=== PATIENT | male | born 1960 | race Caucasian/White ===

== ENCOUNTER 2021-01-29 16:07 | Observation (INO) | payer OTHER, MEDICAID, SELFPAY ==
[2021-01-29] VITALS (21 sets, daily range): BP systolic 91–141; BP diastolic 55–97; PULSE 90–121; RESP 14–22; TEMP 36.7; O2SAT 93–100; BMI 30.2
[2021-01-29 16:52] LABS: Add Manual Diff / Slide Review NO; Basophils Absolute Auto 0 /uL (0-100); Basophils Percent Auto 1.3 % (0-2); Eosinophils Absolute Auto 100 /uL (0-450); Eosinophils Percent Auto 2.5 % (2-4); Hematocrit 41.8 % (41-53); Hemoglobin 14.2 g/dL (13.5-17.5); Lymphocytes Absolute Auto 1100 /uL (1100-4500); Lymphocytes Percent Auto 31.1 % (25-40); Mean Corpuscular Hemoglobin 33.7 PG (26-34); Mean Corpuscular Volume 99.1 fL (80-100); Monocytes Absolute Auto 300 /uL (0-900); Monocytes Percent Auto 7.6 % (3-14); Neutrophils Absolute Auto 2100 /uL (1500-7000); Neutrophils Percent Auto 57.5 % (50-75); Platelet Count 189 X10^3/uL (150-400); Red Blood Cell Count 4.22 X10^6/uL (4.5-5.9); Red Cell Distribution Width 17.7 % (11.6-14.8); White Blood Cell Count 3.7 X10^3/uL (4.5-11.0)
[2021-01-29 16:53] LABS: Prothrombin Time 11.5 SECONDS (10.1-12.7)
[2021-01-29 16:59] LABS: Alanine Aminotransferase 105 IU/L (<50); Albumin 4.4 g/dL (3.5-5.0); Albumin Globulin Ratio 1.8 (1.0-2.8); Alkaline Phosphatase 66 U/L (38-126); Aspartate Aminotransferase 188 IU/L (17-59); BUN Creatinine Ratio 5.3 (6-22); Bilirubin Total 0.9 mg/dL (0.2-1.3); Blood Urea Nitrogen 5 mg/dL (9-20); Calcium 9.4 mg/dL (8.4-10.2); Carbon Dioxide 27 mmol/L (22-32); Chloride 94 mmol/L (98-107); Estimated Glomerular Filt Rate > 60.0 mL/min (>60); Ethanol (ETOH) 116 mg/dL; Globulin 2.5 g/dL (1.7-4.1); Glucose 213 mg/dL (70-100); HEMOLYSIS < 15 (0-50); Potassium 3.9 mmol/L (3.4-5.1); Sodium 134 mmol/L (137-145); Total Protein 6.9 g/dL (6.3-8.2)
[2021-01-29] MEDS: LORazepam 2 MG/ML INJ IV ×2 (17:01→18:40)
[2021-01-29] MEDS: PHENobarbital 65 MG/ML VIAL 260 MG IV (17:03)
[2021-01-29] MEDS: SODIUM CHLORIDE 0.9% 1,000 ML 1000 ML IV (17:05)
--- NOTE | 2021-01-29 17:15 | ED_ITS ---
HPI - Recheck/Abnormal Lab/Rx General Chief Complaint: Recheck/Abnormal Lab/Rx Stated Complaint: ALCOHOL DETOX PRETTY BAD Time Seen by Provider: 01/29/21 16:46 Source: patient Mode of arrival: Ambulatory Limitations: no limitations History of Present Illness HPI narrative: Patient is a 60-year-old male. Known alcoholic. Last drink was this morning. Arrives to the emergency department seeking help for his alcohol withdrawal. Patient has had withdrawals in the past. Has hallucinated in the past. Is having some hallucinations upon arrival. Does have a history of squamous cell carcinoma. Is not currently undergoing any treatment. Is on warfarin for multiple DVTs. States that he has had quite a bit of nausea and vomiting recently so is unsure as to how much of any of his medications that he has been receiving. Related Data Home Medications Medication Instructions Recorded Confirmed alprazolam 0.5 mg tablet 0.5 mg PO TIDP PRN #0 11/14/16 lorazepam 0.5 mg tablet 0.5 mg PO Q6H #0 11/14/16 metoclopramide HCl 10 mg tablet 10 mg PO Q6HP PRN #0 11/14/16 ondansetron HCl 4 mg tablet 4 mg PO Q6H #0 11/14/16 warfarin 7.5 mg tablet (Coumadin) 3.75 mg PO EVERY OTHER DAY #0 11/14/16 warfarin 7.5 mg tablet (Coumadin) 7.5 mg PO EVERY OTHER DAY #0 11/14/16 Previous Rx's Medication Instructions Recorded simvastatin 20 mg tablet 20 mg PO HS #90 tab 06/06/16 fluconazole 10 mg/mL oral 10 ml PO QDAY #120 ml 01/01/17 suspension nitrofurantoin 100 mg PO BID #10 cap 06/13/17 monohydrate/macrocrystals 100 mg capsule (Macrobid) phenazopyridine 200 mg tablet 200 mg PO TID PRN #3 tab 06/13/17 (Pyridium) Allergies Allergy/AdvReac Type Severity Reaction Status Date / Time No Known Drug Allergies Allergy Verified 01/29/21 16:49 Review of Systems Constitutional Constitutional: Denies fever(s) and Reports headache(s) Eyes Eyes: Denies change in vision ENT Ears, Nose, Mouth, and Throat: Reports headache(s) Cardiovascular Cardiovascular: Reports as per HPI and Reports system reviewed and no additional complaints, except as documented Respiratory Respiratory: Reports as per HPI and Reports system reviewed and no additional complaints, except as documented Gastrointestinal Gastrointestinal: Reports as per HPI and Reports system reviewed and no additional complaints, except as documented Genitourinary Genitourinary: Reports system reviewed and no additional complaints, except as documented and Reports as per HPI Neurologic Neurologic: Reports system reviewed and no additional complaints, except as documented, Reports as per HPI and Reports headache(s) Psychiatric Psychiatric: Reports system reviewed and no additional complaints, except as documented and Reports as per HPI Hematologic/Lymphatic On Anticoagulants: Yes Allergic/Immunologic Allergic/Immunologic: Reports system reviewed and no additional complaints, except as documented and Reports as per HPI Patient History Medical History Alcohol withdrawal Dysphagia History of deep venous thrombosis (06/28/15) Onychomycosis (12/02/14) Squamous cell carcinoma of oral cavity Urinary tract infection alcohol intake frequency: 3 or more drinks per day Substance Use Type: does not use Exam Initial Vital Signs Initial Vital Signs: Vital Signs Temperature 98.0 F 01/29/21 16:18 Pulse Rate 121 H 01/29/21 16:18 Respiratory Rate 22 01/29/21 16:18 Blood Pressure 141/97 H 01/29/21 16:18 Pulse Oximetry 99 01/29/21 16:18 Const General: cooperative, comfortable and well developed Limitations: mental status not altered HENMD Head: normal to inspection and normocephalic Eyes General: appearance normal, both eyes and all related structures Resp Effort & Inspection: normal respiratory effort Auscultation: clear to auscultation bilaterally Cardio Rate: regular rate Rhythm: regular rhythm GI Inspection: normal to inspection and non-distended Palpation: soft and No tender Back/Spine/Pelvis Back: normal to inspection Skin Other: Multiple bruises in various stages of healing on his abdomen and chest and left arm Neuro General: patient alert, patient awake, patient oriented x3 and moves all extremities Extrem General: normal to inspection and capillary refill normal Psych Appearance: grossly normal and well kempt Course Orders Ordered: ED Orders 01/29/21 16:20 Complete Blood Count AUTO DIFF Stat Comprehensive Metabolic Panel Stat Ethanol (ETOH) Stat Prothrombin Time INR Stat 01/29/21 17:51 COVID19 -Nasal swab/Pre-Proc Stat 01/29/21 18:47 COVID19 - ADMIT (CERTIFIED RESPIRATORY THERAPIST swab/PCR) Stat Discontinued Medications Sodium Chloride (Normal Saline 0.9%) 1,000 mls @ 1,000 mls/hr IV BOLUS ONE Stop: 01/29/21 17:45 Last Infusion: 01/29/21 18:21 Dose: 0 mls/hr Documented by: Admin: 01/29/21 17:05 Dose: 1,000 mls/hr Documented by: LIAM Thiamine HCl 100 mg/ Sodium (Chloride) 101 mls @ 404 mls/hr IV NOW ONE Stop: 01/29/21 16:49 Last Infusion: 01/29/21 18:21 Dose: 0 mls/hr Documented by: Admin: 01/29/21 18:02 Dose: 404 mls/hr Documented by: LIAM Thiamine HCl 100 mg/ Sodium (Chloride) 101 mls @ 404 mls/hr IV NOW ONE Stop: 01/29/21 17:54 Last Admin: 01/29/21 18:14 Dose: Not Given Documented by: LIAM Lorazepam (Lorazepam 2 Mg/Ml Inj) 2 mg IV NOW ONE Stop: 01/29/21 16:48 Last Admin: 01/29/21 17:01 Dose: 2 mg Documented by: LIAM Lorazepam (Lorazepam 2 Mg/Ml Inj) 2 mg IV NOW ONE Stop: 01/29/21 18:34 Last Admin: 01/29/21 18:40 Dose: 2 mg Documented by: LIAM Multivitamins (Multivitamin 1 Tablet) 1 tab PO DAILY ONE Stop: 01/29/21 16:49 Last Admin: 01/29/21 18:03 Dose: 1 tab Documented by: LIAM Phenobarbital (Phenobarbital 65 Mg/Ml Vial) 260 mg IV NOW ONE Stop: 01/29/21 16:48 Last Admin: 01/29/21 17:03 Dose: 260 mg Documented by: LIAM Vital Signs Vital signs: Vital Signs - 8 hr 01/29/21 16:18 01/29/21 16:29 01/29/21 16:30 Temperature 98.0 F Pulse Rate 121 H 109 H 107 H Respiratory Rate 22 Blood Pressure 141/97 H Pulse Oximetry 99 96 96 01/29/21 16:42 01/29/21 17:00 01/29/21 17:30 Temperature Pulse Rate 107 H 103 H 92 H Respiratory Rate 14 17 20 Blood Pressure 124/85 128/73 Pulse Oximetry 97 96 97 01/29/21 17:31 01/29/21 18:00 01/29/21 18:20 Temperature Pulse Rate 92 H 90 95 H Respiratory Rate 18 19 15 Blood Pressure 92/63 106/67 116/77 Pulse Oximetry 98 96 100 MDM - Recheck/Abnormal Lab/Rx Lab Data Attestation: I reviewed the patient's lab results. Result diagrams: 01/29/21 16:20 01/29/21 16:20 Labs: Lab Results 01/29/21 01/29/21 01/29/21 Range/Units 16:20 16:20 16:20 WBC 3.7 L (4.5-11.0) X10^3/uL RBC 4.22 L (4.5-5.9) X10^6/uL Hgb 14.2 (13.5-17.5) g/dL Hct 41.8 (41-53) % MCV 99.1 (80-100) fL MCH 33.7 (26-34) PG MCHC 34.0 (30-36) % RDW 17.7 H (11.6-14.8) % Plt Count 189 (150-400) X10^3/uL Neut % (Auto) 57.5 (50-75) % Lymph % (Auto) 31.1 (25-40) % [place] % (Auto) 7.6 (3-14) % Eos % (Auto) 2.5 (2-4) % Baso % (Auto) 1.3 (0-2) % Neut # (Auto) 2100 (4456-6524) /uL Lymph # (Auto) 1100 (6157-5153) /uL [place] # (Auto) 300 (0-900) /uL Eos # (Auto) 100 (0-450) /uL Baso # (Auto) 0 (0-100) /uL PT 11.5 (10.1-12.7) SECONDS INR 1.0 (0.9-1.3) Sodium 134 L (137-145) mmol/L Potassium 3.9 (3.4-5.1) mmol/L Chloride 94 L (98-107) mmol/L Carbon Dioxide 27 (22-32) mmol/L BUN 5 L (9-20) mg/dL Creatinine 0.95 (0.66-1.25) mg/dL Estimated GFR > 60.0 (>60) mL/min BUN/Creatinine Ratio 5.3 L (6-22) Glucose 213 H (70-100) mg/dL Calcium 9.4 (8.4-10.2) mg/dL Total Bilirubin 0.9 (0.2-1.3) mg/dL AST 188 H (17-59) IU/L ALT 105 H (<50) IU/L Alkaline Phosphatase 66 (38-126) U/L Total Protein 6.9 (6.3-8.2) g/dL Albumin 4.4 (3.5-5.0) g/dL Globulin 2.5 (1.7-4.1) g/dL Albumin/Globulin Ratio 1.8 (1.0-2.8) Ethyl Alcohol 116 H ( - 10) mg/dL SARS-CoV-2 (PCR) (Negative) 01/29/21 Range/Units 17:51 WBC (4.5-11.0) X10^3/uL RBC (4.5-5.9) X10^6/uL Hgb (13.5-17.5) g/dL Hct (41-53) % MCV (80-100) fL MCH (26-34) PG MCHC (30-36) % RDW (11.6-14.8) % Plt Count (150-400) X10^3/uL Neut % (Auto) (50-75) % Lymph % (Auto) (25-40) % [place] % (Auto) (3-14) % Eos % (Auto) (2-4) % Baso % (Auto) (0-2) % Neut # (Auto) (5795-8680) /uL Lymph # (Auto) (9217-1775) /uL [place] # (Auto) (0-900) /uL Eos # (Auto) (0-450) /uL Baso # (Auto) (0-100) /uL PT (10.1-12.7) SECONDS INR (0.9-1.3) Sodium (137-145) mmol/L Potassium (3.4-5.1) mmol/L Chloride (98-107) mmol/L Carbon Dioxide (22-32) mmol/L BUN (9-20) mg/dL Creatinine (0.66-1.25) mg/dL Estimated GFR (>60) mL/min BUN/Creatinine Ratio (6-22) Glucose (70-100) mg/dL Calcium (8.4-10.2) mg/dL Total Bilirubin (0.2-1.3) mg/dL AST (17-59) IU/L ALT (<50) IU/L Alkaline Phosphatase (38-126) U/L Total Protein (6.3-8.2) g/dL Albumin (3.5-5.0) g/dL Globulin (1.7-4.1) g/dL Albumin/Globulin Ratio (1.0-2.8) Ethyl Alcohol ( - 10) mg/dL SARS-CoV-2 (PCR) Negative (Negative) MDM Narrative Medical decision making narrative: Patient is still intoxicated and is having withdrawal symptoms. Was given medications here in the emergency department. This did improve his symptoms somewhat however they continued. I do feel the patient is high risk for deterioration. Plan will be is to admit to the hospital for further treatment of his alcohol withdrawal symptoms. Discussed this with the patient. He expressed understanding agreement. Discharge Plan Departure Patient Disposition: Admitted As Inpatient Clinical Impression: Alcohol withdrawal
--- NOTE | 2021-01-29 17:31 | PC.NURSE ---
is at home taking care of the children. Note made on the chart 'comment' section to call with updates [phone]
[2021-01-29] MEDS: THIAMINE 100 MG in SODIUM CHLORIDE 0.9% 100 ML 404 ML IV (18:02)
[2021-01-29] MEDS: MULTIVITAMIN 1 TABLET 1 TAB PO (18:03)
[2021-01-29 18:09] LABS: COVID19 -Nasal RAPID Negative (Negative)
[2021-01-29 19:45] LABS: COVID19 - ADMIT (NP swab/PCR) Negative (Negative)
[2021-01-29 20:17] LABS: Hemoglobin A1C% w Est Avg Glu 7.8 % (4.0-6.0)
[2021-01-29] MEDS: MAG HYDROX/ALUMINUM/SIMETH SUS 20 ML, LIDOCAINE VISCOUS 2% 15 ML PO (20:24)
[2021-01-29] MEDS: ONDANSETRON 4 MG/2 ML INJ IV (20:25)
[2021-01-29] MEDS: INSULIN LISPRO 100 UNIT/ML 3ML VIAL SUBCUT (20:32)
[2021-01-29 23:47] LABS: Free T4, Direct Thyroxine 0.96 ng/dL (0.78-2.19)
[2021-01-29] MEDS: chlordiazePOXIDE 10 MG CAPSULE 30 MG PO (23:57)
[2021-01-30] VITALS (36 sets, daily range): BP systolic 99–149; BP diastolic 55–100; PULSE 81–114; RESP 11–24; TEMP 35.9–37.2; O2SAT 91–100; BMI 29.2
[2021-01-30] MEDS: SODIUM CHLORIDE 0.9% 1,000 ML 100 ML IV ×2 (00:01→10:48)
--- NOTE | 2021-01-30 00:36 | P.HP_ITS ---
History of Present Illness History of Present Illness Date Patient Seen: 01/29/21 Time Patient Seen: 22:00 Chief complaint: Requesting alcohol detox Narrative: Benedict Crawford is a 60-year-old male with a history of chronic continuous alcohol abuse, squamous cell carcinoma of the tongue, diabetes type 2 with marginal control, multiple thrombi currently anticoagulated on Pradaxa, hyperlipidemia, and hypothyroidism to the emergency department after being turned down at [facility]. He was initially accepted for alcohol rehab but because he was actively withdrawing they referred him to [facility] emergency department and they would not admit him because they were full. He states that his form of withdrawals consists of vomiting and what he calls seizures which sounds to me like vomiting. He has pain in his chest and esophagus he has been coughing up bloody phlegm, intractable vomiting, persistent nausea, states he has short bursts of urination as well as bowel movements. He states that the vomiting is only relieved by drinking alcohol which he seems to do about 2-3 times per day. He endorses having sweats and a choking sensation. He is not interested in inpatient rehab because he owns a business and is concerned that his business which would be shut down if he were absent for any length of time. Patient has a history of squamous cell carcinoma of his tongue and has a history of having tube feedings in the past. Labs done in the ED include WBC of 3.7 RBC 4.22 hemoglobin and hematocrit within normal limits, platelet count 189, sodium 134, chloride 94, BUN 5, glucose 213, hemoglobin A1c of 7.8, AST 188, ALT 105, TSH of 33, free T4 is within normal limits at 0.96, alcohol level was 116, COVID-19 PCR is negative. Patient History Medical History Alcohol withdrawal Dysphagia History of deep venous thrombosis (06/28/15) Onychomycosis (12/02/14) Squamous cell carcinoma of oral cavity Urinary tract infection Surgical History History of gastrostomy tube placement Family & Social History Family History Mother Alzheimer's disease Father Heart disease Polysubstance abuse Brother Polysubstance abuse Other Alcohol abuse Safety & Behavioral: Feels Safe in Current Yes Environment Been Physically Hurt or No Threatened By a Person Suicidal Ideation Description None Suicide Plan Description No Plan Tobacco & Substance use: alcohol intake frequency 1 qt hard liquor per day Substance Use Type denies Meds Home Medications and Allergies Home Medications Medication Instructions Recorded Confirmed Type simvastatin 20 mg tablet 20 mg PO HS #90 tab 06/06/16 Rx alprazolam 0.5 mg tablet 0.5 mg PO TIDP PRN #0 11/14/16 History lorazepam 0.5 mg tablet 0.5 mg PO Q6H #0 11/14/16 History metoclopramide HCl 10 mg tablet 10 mg PO Q6HP PRN #0 11/14/16 History ondansetron HCl 4 mg tablet 4 mg PO Q6H #0 11/14/16 History warfarin 7.5 mg tablet (Coumadin) 3.75 mg PO EVERY OTHER DAY #0 11/14/16 History warfarin 7.5 mg tablet (Coumadin) 7.5 mg PO EVERY OTHER DAY #0 11/14/16 History fluconazole 10 mg/mL oral 10 ml PO QDAY #120 ml 01/01/17 Rx suspension nitrofurantoin 100 mg PO BID #10 cap 06/13/17 Rx monohydrate/macrocrystals 100 mg capsule (Macrobid) phenazopyridine 200 mg tablet 200 mg PO TID PRN #3 tab 06/13/17 Rx (Pyridium) Allergies Allergy/AdvReac Type Severity Reaction Status Date / Time No Known Drug Allergies Allergy Verified 01/29/21 16:49 Review of Systems Review of Systems ROS: Yes All systems reviewed with the patient and are negative except as otherwise documented Exam Vital Signs (past 8 hours): - 01/29/21 16:42 01/29/21 17:00 01/29/21 17:30 Pulse Rate 107 H 103 H 92 H Respiratory Rate 14 17 20 Blood Pressure 124/85 128/73 Pulse Oximetry 97 96 97 01/29/21 17:31 01/29/21 18:00 01/29/21 18:20 Pulse Rate 92 H 90 95 H Respiratory Rate 18 19 15 Blood Pressure 92/63 106/67 116/77 Pulse Oximetry 98 96 100 01/29/21 18:30 01/29/21 19:00 01/29/21 19:30 Pulse Rate 92 H 103 H 100 H Respiratory Rate 19 17 19 Blood Pressure 122/70 129/90 110/79 Pulse Oximetry 98 99 98 01/29/21 20:00 01/29/21 20:30 01/29/21 21:00 Pulse Rate 97 H 101 H 99 H Respiratory Rate 20 17 20 Blood Pressure 122/77 115/79 95/55 L Pulse Oximetry 97 96 93 01/29/21 21:30 01/29/21 21:33 01/29/21 22:00 Pulse Rate 102 H 108 H 111 H Respiratory Rate 20 18 Blood Pressure 125/74 116/86 Pulse Oximetry 95 98 97 01/29/21 22:30 01/29/21 23:00 01/29/21 23:30 Pulse Rate 110 H 105 H 104 H Respiratory Rate 21 19 19 Blood Pressure 122/77 94/59 L 91/55 L Pulse Oximetry 97 96 96 01/30/21 00:00 01/30/21 00:02 Pulse Rate 110 H 110 H Respiratory Rate 16 18 Blood Pressure 127/80 Pulse Oximetry 98 97 Oxygen Delivery Method Room Air Narrative Exam Narrative: Gen: Alert, oriented, disheveled-appearing 60y.o. male, talkative at times HEENT: normocephalic, atraumatic, conjunctiva clear, sclera non-icteric, oral mucosa pink and moist, poor dentition Neck: supple, full ROM, no JVD, trachea is midline Resp: Lungs CTA, non-labored breathing CV: RRR, no murmur or rubs Abd: soft, non-tender, normoactive BTs Skin: no lesions or rashes, dry and intact Neuro: CIWA: 7, Alert and oriented X 4 w/no focal deficits. Speech clear and coherent. Extremities: moves all 4 extremities, is ambulatory, negative Carolyne?s sign Psyche: normal mood and affect. Objective Labs Result Diagrams: 01/29/21 16:20 01/29/21 16:20 Labs: Laboratory Results - last 24 hr 01/29/21 01/29/21 01/29/21 16:20 16:20 16:20 WBC 3.7 L RBC 4.22 L Hgb 14.2 Hct 41.8 MCV 99.1 MCH 33.7 MCHC 34.0 RDW 17.7 H Plt Count 189 Neut % (Auto) 57.5 Lymph % (Auto) 31.1 [place] % (Auto) 7.6 Eos % (Auto) 2.5 Baso % (Auto) 1.3 Neut # (Auto) 2100 Lymph # (Auto) 1100 [place] # (Auto) 300 Eos # (Auto) 100 Baso # (Auto) 0 PT 11.5 INR 1.0 Sodium 134 L Potassium 3.9 Chloride 94 L Carbon Dioxide 27 BUN 5 L Creatinine 0.95 Estimated GFR > 60.0 BUN/Creatinine Ratio 5.3 L Glucose 213 H Hemoglobin A1c Calcium 9.4 Total Bilirubin 0.9 AST 188 H ALT 105 H Alkaline Phosphatase 66 Total Protein 6.9 Albumin 4.4 Globulin 2.5 Albumin/Globulin Ratio 1.8 TSH Free T4 Ethyl Alcohol 116 H SARS-CoV-2 (PCR) 01/29/21 01/29/21 01/29/21 16:20 16:20 16:20 WBC RBC Hgb Hct MCV MCH MCHC RDW Plt Count Neut % (Auto) Lymph % (Auto) [place] % (Auto) Eos % (Auto) Baso % (Auto) Neut # (Auto) Lymph # (Auto) [place] # (Auto) Eos # (Auto) Baso # (Auto) PT INR Sodium Potassium Chloride Carbon Dioxide BUN Creatinine Estimated GFR BUN/Creatinine Ratio Glucose Hemoglobin A1c 7.8 H Calcium Total Bilirubin AST ALT Alkaline Phosphatase Total Protein Albumin Globulin Albumin/Globulin Ratio TSH 33.0 H Free T4 0.96 Ethyl Alcohol SARS-CoV-2 (PCR) 01/29/21 01/29/21 17:51 18:45 WBC RBC Hgb Hct MCV MCH MCHC RDW Plt Count Neut % (Auto) Lymph % (Auto) [place] % (Auto) Eos % (Auto) Baso % (Auto) Neut # (Auto) Lymph # (Auto) [place] # (Auto) Eos # (Auto) Baso # (Auto) PT INR Sodium Potassium Chloride Carbon Dioxide BUN Creatinine Estimated GFR BUN/Creatinine Ratio Glucose Hemoglobin A1c Calcium Total Bilirubin AST ALT Alkaline Phosphatase Total Protein Albumin Globulin Albumin/Globulin Ratio TSH Free T4 Ethyl Alcohol SARS-CoV-2 (PCR) Negative Negative Assessment & Plan Assessment & Plan narrative: Benedict Crawford is a 60-year-old male who will be admitted for acute alcohol withdrawal. 1. Acute alcohol withdrawal, present on admission * He was given 1 dose of phenobarbital in the emergency department * He will have CIWA monitoring as well as seizure precautions * He will receive oral thiamine, folic acid, and multivitamin starting tomorrow * Librium taper of 30 mg p.o. q.6 hours, dropped to 20 mg p.o. q.6 * Ativan per [facility] protocol * Consult to social work assistant for outpatient rehab 2. Reported hemoptysis * Monitor daily CBC, if he develops gross hemoptysis will need to likely transfer to a facility where they can assess him for esophageal varices 3. Intractable vomiting, acute, present on admission * Patient denies use of cannabis products which can contribute to cyclical vomiting * He will receive IV Zofran 4 mg Q 6 as needed for nausea and vomiting 4. Diabetes type 2 uncontrolled with hemoglobin A1c of 7.8, present on admission * He is initiated on Lantus 5 units at bedtime and low-dose correctional scale * Carb controlled diet 5. Hypothyroidism, chronic * His TSH is quite elevated, free T4 is within normal limits * Continue home dose of levothyroxine 150 mcg p.o. daily 6. History of DVT, chronic * Continue home dose of Pradaxa 150 mg p.o. b.i.d. 7. BPH, chronic * Continue tamsulosin 0.4 mg p.o. daily VTE Prophylaxis: Wells risk score 4 [X] Patient is currently anticoagulated on Pradaxa 150 mg p.o. b.i.d. Patient is admitted to the inpatient service due to the severity of disease, risks of further disease progression and this stay is expected to exceed 2 midnights. FEN: IV fluids: NS at 100 ml/hour, diet: carb controlled, labs: CBC, C/BMP, liver enzymes, Mag, PT/INR Consultants None Dispo: patient may be appropriate for inpatient rehab, have requested consult from Code status: Full code as discussed with the patient who identifies his as his surrogate and POA. [X] I have utilized all available immediate resources to obtain, update, or review of the patient's current medications COVID-19 COVID-19 status: Negative Result date/Date tested (Pos, Neg/Pending): 01/29/21 Time Spent With Patient Critical Care time: I spent a total of [] minutes of critical care time on this patient's care today; this time is exclusive of procedural time. Scores Wells' Criteria for PE Clinical signs and symptoms of DVT: No PE is #1 Dx or equally likely: No Heart rate > 100: Yes Immobilization at least 3 days or surg in previous 4 weeks: No History of PE or DVT: Yes Hemoptysis: Yes Malignancy w/Treatment within 6 months or palliative: No Wells' PE Score total: 4.0 Quality VTE Deep Vein Thrombosis/Pulmonary Embolism Present on Admission: No MIPS - Admit I confirm the patient?s Advance Care Plan is present, Code status is documented, Surrogate decision maker is in patient?s record [If Yes, STOP here]: Yes MIPS - DC The patient has current or prior documentation of left ventricular ejection fraction (LVEF) less than 40%, or moderate or severely depressed left ventricular systolic function.: No
--- NOTE | 2021-01-30 02:48 | PC.NURSE ---
gave a half a tuna sandwich some crackers and a glass of water.
[2021-01-30] MEDS: chlordiazePOXIDE 10 MG CAPSULE 30 MG PO ×3 (05:01→21:40)
[2021-01-30] MEDS: ONDANSETRON 4 MG/2 ML INJ IV ×2 (05:01→20:01)
[2021-01-30 05:11] LABS: Alanine Aminotransferase 79 IU/L (<50); Albumin 3.6 g/dL (3.5-5.0); Albumin Globulin Ratio 1.6 (1.0-2.8); Alkaline Phosphatase 47 U/L (38-126); Aspartate Aminotransferase 144 IU/L (17-59); Bilirubin Total 1.4 mg/dL (0.2-1.3); Bilirubin Unconjugated 0.8 mg/dL (0.0-1.1); Globulin 2.3 g/dL (1.7-4.1); HEMOLYSIS < 15 (0-50); Total Protein 5.9 g/dL (6.3-8.2)
[2021-01-30 05:13] LABS: BUN Creatinine Ratio 6.3 (6-22); Blood Urea Nitrogen 6 mg/dL (9-20); Calcium 8.3 mg/dL (8.4-10.2); Carbon Dioxide 31 mmol/L (22-32); Chloride 98 mmol/L (98-107); Estimated Glomerular Filt Rate > 60.0 mL/min (>60); Glucose 193 mg/dL (70-100); HEMOLYSIS < 15 (0-50); Magnesium 1.4 mg/dL (1.6-2.3); Potassium 3.8 mmol/L (3.4-5.1); Sodium 134 mmol/L (137-145)
[2021-01-30 05:19] LABS: Hematocrit 38.2 % (41-53); Hemoglobin 12.9 g/dL (13.5-17.5); Mean Corpuscular HGB Conc 33.8 % (30-36); Mean Corpuscular Hemoglobin 33.7 PG (26-34); Mean Corpuscular Volume 99.7 fL (80-100); Platelet Count 162 X10^3/uL (150-400); Red Blood Cell Count 3.84 X10^6/uL (4.5-5.9); Red Cell Distribution Width 17.8 % (11.6-14.8); White Blood Cell Count 2.8 X10^3/uL (4.5-11.0)
[2021-01-30] MEDS: IBUPROFEN 400 MG TABLET PO (05:20)
[2021-01-30 05:26] LABS: Add Manual Diff / Slide Review YES
[2021-01-30 06:29] LABS: Total Cells Counted 100
[2021-01-30 06:30] LABS: Anisocytosis 2+; Neutrophils Absolute Manual 1960 /uL (3000-5900)
[2021-01-30] MEDS: PANTOPRAZOLE DR 40 MG TABLET PO (07:44)
[2021-01-30] MEDS: INSULIN LISPRO 100 UNIT/ML 3ML VIAL SUBCUT ×4 (07:51→21:50)
[2021-01-30] MEDS: ENOXAPARIN 40 MG/0.4 ML SYRINGE SUBCUT (08:03)
[2021-01-30] MEDS: LORazepam 0.5 MG TABLET PO ×2 (08:03→10:04)
[2021-01-30] MEDS: FOLIC ACID 1 MG TABLET PO (08:04)
[2021-01-30] MEDS: THIAMINE 100 MG TABLET PO (08:04)
[2021-01-30] MEDS: MULTIVITAMIN 1 TABLET 1 TAB PO (08:04)
[2021-01-30] MEDS: LORazepam 2 MG/ML INJ IV ×2 (11:40→15:24)
[2021-01-30] MEDS: MAGNESIUM CHLORIDE 64 MG TABLET 128 MG PO (12:58)
--- NOTE | 2021-01-30 18:28 | PM.PN.1 ---
Subjective Subjective Date Patient Seen: 01/30/21 Interval history: NO SIGNIFICANT ISSUES REPORTED BY NURSING OVERNIGHT PATIENT DENIES ANY INCREASING CONFUSION SOME ANXIETY REPORTED NO CHEST PAIN. NO SHORTNESS OF BREATH Exam Vital Signs (past 8 hours): - 01/30/21 10:30 01/30/21 10:56 01/30/21 12:16 Temperature 97.5 F L Pulse Rate 102 H 87 84 Respiratory Rate 19 18 16 Blood Pressure 125/88 113/74 Pulse Oximetry 99 97 01/30/21 14:08 01/30/21 17:12 01/30/21 18:00 Temperature 96.6 F L 97 F L Pulse Rate 95 H 107 H 90 Respiratory Rate 19 16 18 Blood Pressure 114/84 120/84 Pulse Oximetry 98 97 Oxygen Delivery Method Nasal Cannula Oxygen Flow Rate 2 Narrative Exam Narrative: NO ACUTE DISTRESS. PATIENT IS ALERT ORIENTED X3. HEAD ATRAUMATIC NORMOCEPHALIC NECK : SUPPLE WITHOUT ADENOPATHY NO CAROTID BRUITS EYE: EOMI, PERRLA, NORMAL CONJUNCTIVA; NO JAUNDICE CHEST: REGULAR RATE. NO RUBS. PMI IS NON DISPLACED. NO MURMURS; NORMAL S1-S2 PULMONARY: DECREASED BS OVER THE BASES. MILD BIBASILAR CRACKLES NOTED; NO INCREASED DULLNESS TO PERCUSSION ABDOMEN: OBESE BUT SOFT. NONTENDER. NONDISTENDED. BOWEL SOUNDS ARE PRESENT IN ALL 4 QUADRANTS. NO MASS. EXTREMITIES: NO EDEMA.. NO CYANOSIS CLUBBING NOTED. NEURO: CRANIAL NERVES 2-12 GROSSLY INTACT. NO FOCAL NEUROLOGICAL DEFICIT NOTED. MSK: NORMAL RANGE OF MOTION FOR AGE. NO JOINT EFFUSION. SKIN: NORMAL FOR ETHNICITY; NO ECCHYMOSIS. NO LESION. GOOD TURGOR.; NO RASHES : NORMAL EXTERNAL GENITALIA. PSYCH : ANXIOUS. ALERT AWAKE ORIENTED X3 Objective Labs Result Diagrams: 01/30/21 04:50 01/30/21 04:50 Labs: Laboratory Results - last 24 hr 01/29/21 01/29/21 01/29/21 16:20 16:20 16:20 WBC RBC Hgb Hct MCV MCH MCHC RDW Plt Count Neut % (Auto) Lymph % (Auto) [place] % (Auto) Eos % (Auto) Baso % (Auto) Lymph # (Auto) [place] # (Auto) Baso # (Auto) Total Counted Seg Neutrophils % Band Neutrophils % Lymphocytes % (Manual) Atypical Lymphs % Monocytes % (Manual) Eosinophils % (Manual) Neutrophils # (Manual) RBC Morphology Anisocytosis Sodium Potassium Chloride Carbon Dioxide BUN Creatinine Estimated GFR BUN/Creatinine Ratio Glucose Hemoglobin A1c 7.8 H Calcium Magnesium Total Bilirubin Conjugated Bilirubin Unconjugated Bilirubin AST ALT Alkaline Phosphatase Total Protein Albumin Globulin Albumin/Globulin Ratio TSH 33.0 H Free T4 0.96 SARS-CoV-2 (PCR) 01/29/21 01/30/21 01/30/21 18:45 04:50 04:50 WBC 2.8 L RBC 3.84 L Hgb 12.9 L Hct 38.2 L MCV 99.7 MCH 33.7 MCHC 33.8 RDW 17.8 H Plt Count 162 Neut % (Auto) Not Reportable Lymph % (Auto) Not Reportable [place] % (Auto) Not Reportable Eos % (Auto) Not Reportable Baso % (Auto) Not Reportable Lymph # (Auto) Not Reportable [place] # (Auto) Not Reportable Baso # (Auto) Not Reportable Total Counted 100 Seg Neutrophils % 64.0 Band Neutrophils % 6.0 Lymphocytes % (Manual) 10.0 L Atypical Lymphs % 14.0 H Monocytes % (Manual) 4.0 Eosinophils % (Manual) 2.0 Neutrophils # (Manual) 1960 L RBC Morphology See below Anisocytosis 2+ H Sodium 134 L Potassium 3.8 Chloride 98 Carbon Dioxide 31 BUN 6 L Creatinine 0.96 Estimated GFR > 60.0 BUN/Creatinine Ratio 6.3 Glucose 193 H Hemoglobin A1c Calcium 8.3 L Magnesium 1.4 L Total Bilirubin Conjugated Bilirubin Unconjugated Bilirubin AST ALT Alkaline Phosphatase Total Protein Albumin Globulin Albumin/Globulin Ratio TSH Free T4 SARS-CoV-2 (PCR) Negative 01/30/21 04:50 WBC RBC Hgb Hct MCV MCH MCHC RDW Plt Count Neut % (Auto) Lymph % (Auto) [place] % (Auto) Eos % (Auto) Baso % (Auto) Lymph # (Auto) [place] # (Auto) Baso # (Auto) Total Counted Seg Neutrophils % Band Neutrophils % Lymphocytes % (Manual) Atypical Lymphs % Monocytes % (Manual) Eosinophils % (Manual) Neutrophils # (Manual) RBC Morphology Anisocytosis Sodium Potassium Chloride Carbon Dioxide BUN Creatinine Estimated GFR BUN/Creatinine Ratio Glucose Hemoglobin A1c Calcium Magnesium Total Bilirubin 1.4 H Conjugated Bilirubin 0.0 Unconjugated Bilirubin 0.8 AST 144 H ALT 79 H Alkaline Phosphatase 47 Total Protein 5.9 L Albumin 3.6 Globulin 2.3 Albumin/Globulin Ratio 1.6 TSH Free T4 SARS-CoV-2 (PCR) [facility] Medical History Alcohol withdrawal Dysphagia History of deep venous thrombosis (06/28/15) Onychomycosis (12/02/14) Squamous cell carcinoma of oral cavity Urinary tract infection Surgical History History of gastrostomy tube placement Family History Mother Alzheimer's disease Father Heart disease Polysubstance abuse Brother Polysubstance abuse Other Alcohol abuse Social History household members: none Smoking Status: Current some day smoker alcohol intake: current Assessment & Plan Assessment & Plan narrative: PROBLEM LIST ALCOHOL INTOXICATION. ACUTE. ALCOHOL ABUSE. EXTENSIVE COUNSELING GIVEN POSSIBLE ANXIETY AND DEPRESSION.NOS MEDICAL NONCOMPLIANCE. EXTENSIVE COUNSELING GIVEN HYPOTHYROIDISM. PER HISTORY HYPERTENSION PER HISTORY HYPERLIPIDEMIA PER HISTORY ANEMIA. LIKELY OF CHRONIC DISEASE. OTHER TYPES COULD BE WORKED OP PLAN CONTINUE WITH LIBRIUM T.I.D. ATIVAN NEEDED FOR WITHDRAWAL WILL ADD GABAPENTIN WELL ROBAXIN ADD BUSPAR AND ZOLOFT FOR ANXIETY TRAZODONE AT NIGHT DISCONTINUE IV FLUID MONITOR CLOSELY FOR ANY SIGN OF DTS DAILY LABS TO FOLLOW FALL AND ASPIRATION PRECAUTIONS MAINTAIN SEIZURE PRECAUTIONS WELL ADDITIONAL MANAGEMENT INDICATED CLINICALLY Time Spent With Patient Critical Care time: I spent a total of [] minutes of critical care time on this patient's care today; this time is exclusive of procedural time. Quality VTE Deep Vein Thrombosis/Pulmonary Embolism Present on Admission: No
[2021-01-30] MEDS: GABAPENTIN 300 MG CAPSULE PO (19:48)
[2021-01-30] MEDS: methocarbamoL 500 MG TABLET PO (19:48)
[2021-01-30] MEDS: BUSPIRONE 5 MG TABLET 10 MG PO (19:48)
[2021-01-30] MEDS: SODIUM CHLORIDE 0.9% FLUSH 10 ML IV (20:01)
[2021-01-30] MEDS: polyethylene glycoL 3350 17 GM POWD.PACK PO (21:39)
[2021-01-30] MEDS: SENNOSIDES 8.6 MG TABLET 17.2 MG PO (21:40)
[2021-01-30] MEDS: ATORVASTATIN 20 MG TABLET 40 MG PO (21:40)
[2021-01-30] MEDS: SERTRALINE 50 MG TABLET PO (21:40)
[2021-01-30] MEDS: TRAZODONE 100 MG TABLET PO (21:42)
[2021-01-30] MEDS: INSULIN GLARGINE 100 UNIT/ML 3ML PEN SUBCUT (21:52)
--- NOTE | 2021-01-30 22:50 | PC.NURSE ---
Addendum entered by Payton Trevino R.N. 01/31/21 03:57: Noted that O2 sats drop down into upper 80's when asleep so placed on O2 at 1L/min per NC. Original Note: Patient is alert and mostly oriented; did not know day of month but did know it was Saturday. Mild tremors noted in bilateral UE when arms extended. Denies anxiety, delusions or hallucinations. Did complain of nausea and was medicated with Zofran; no emesis or dry heaves. CIWA was 2. Breath sounds CTA with RA sat of 93%; is on continuous oximetry. HRR with telemetry reading of SR but is intermittently tachy into low 100's. BT present and is passing flatus. Denied dysuria, frequency or urgency with urination. Is able to move himself in bed. Up in room with SBA and walked around room. Is wearing bilateral calf SCD's. Seizure pads in place. Complained of mid abdominal pain with severity of 6/10 and KENIA Huitron, was informed and did not want to order pain medication at this time. Patient is able to fall asleep despite complaints of pain. Fall risk score is moderate and bed alarm is active.
[2021-01-31] VITALS (10 sets, daily range): BP systolic 96–135; BP diastolic 67–86; PULSE 82–92; RESP 16–20; TEMP 36.2–37.5; O2SAT 95–98
[2021-01-31 00:19] LABS: HBsAg Screen Negative (Negative); Hepatitis A Antibody IgM Negative (Negative); Hepatitis B Core Antibody IgM Negative (Negative); Hepatitis C Antibody <0.1 s/co ratio (0.0-0.9)
[2021-01-31] MEDS: ONDANSETRON 4 MG/2 ML INJ IV ×2 (05:12→11:59)
[2021-01-31] MEDS: SODIUM CHLORIDE 0.9% FLUSH 10 ML IV ×4 (05:13→22:08)
[2021-01-31 05:52] LABS: Add Manual Diff / Slide Review NO; Basophils Absolute Auto 0 /uL (0-100); Basophils Percent Auto 1.1 % (0-2); Eosinophils Absolute Auto 200 /uL (0-450); Eosinophils Percent Auto 6.3 % (2-4); Hematocrit 35.7 % (41-53); Hemoglobin 11.9 g/dL (13.5-17.5); Lymphocytes Absolute Auto 700 /uL (1100-4500); Lymphocytes Percent Auto 28.7 % (25-40); Mean Corpuscular HGB Conc 33.4 % (30-36); Mean Corpuscular Hemoglobin 33.6 PG (26-34); Mean Corpuscular Volume 100.6 fL (80-100); Monocytes Absolute Auto 300 /uL (0-900); Monocytes Percent Auto 10.4 % (3-14); Neutrophils Absolute Auto 1300 /uL (1500-7000); Neutrophils Percent Auto 53.5 % (50-75); Platelet Count 144 X10^3/uL (150-400); Red Blood Cell Count 3.55 X10^6/uL (4.5-5.9); Red Cell Distribution Width 17.6 % (11.6-14.8); White Blood Cell Count 2.4 X10^3/uL (4.5-11.0)
[2021-01-31 05:54] LABS: Alanine Aminotransferase 71 IU/L (<50); Albumin 3.1 g/dL (3.5-5.0); Albumin Globulin Ratio 1.5 (1.0-2.8); Alkaline Phosphatase 45 U/L (38-126); Aspartate Aminotransferase 122 IU/L (17-59); Bilirubin Total 0.9 mg/dL (0.2-1.3); Bilirubin Unconjugated 0.4 mg/dL (0.0-1.1); Globulin 2.1 g/dL (1.7-4.1); HEMOLYSIS < 15 (0-50); Total Protein 5.2 g/dL (6.3-8.2)
[2021-01-31 05:56] LABS: Alanine Aminotransferase 75 IU/L (<50); Albumin 3.3 g/dL (3.5-5.0); Albumin Globulin Ratio 1.5 (1.0-2.8); Alkaline Phosphatase 47 U/L (38-126); Aspartate Aminotransferase 125 IU/L (17-59); BUN Creatinine Ratio 7.9 (6-22); Bilirubin Total 0.9 mg/dL (0.2-1.3); Blood Urea Nitrogen 7 mg/dL (9-20); Calcium 8.6 mg/dL (8.4-10.2); Carbon Dioxide 29 mmol/L (22-32); Chloride 102 mmol/L (98-107); Estimated Glomerular Filt Rate > 60.0 mL/min (>60); Globulin 2.2 g/dL (1.7-4.1); Glucose 173 mg/dL (70-100); HEMOLYSIS < 15 (0-50); Potassium 3.8 mmol/L (3.4-5.1); Sodium 136 mmol/L (137-145); Total Protein 5.5 g/dL (6.3-8.2)
[2021-01-31 06:04] LABS: Magnesium 1.6 mg/dL (1.6-2.3)
[2021-01-31] MEDS: LORazepam 2 MG/ML INJ IV ×2 (06:32→11:29)
[2021-01-31] MEDS: PANTOPRAZOLE DR 40 MG TABLET PO (06:52)
[2021-01-31] MEDS: INSULIN LISPRO 100 UNIT/ML 3ML VIAL SUBCUT ×3 (08:40→17:07)
[2021-01-31] MEDS: GABAPENTIN 300 MG CAPSULE PO ×3 (08:43→22:06)
[2021-01-31] MEDS: THIAMINE 100 MG TABLET PO (08:43)
[2021-01-31] MEDS: MULTIVITAMIN 1 TABLET 1 TAB PO (08:43)
[2021-01-31] MEDS: FOLIC ACID 1 MG TABLET PO (08:43)
[2021-01-31] MEDS: TAMSULOSIN 0.4 MG CAPSULE PO (08:44)
[2021-01-31] MEDS: ENOXAPARIN 40 MG/0.4 ML SYRINGE SUBCUT (08:44)
[2021-01-31] MEDS: METOPROLOL ER 25 MG TABLET PO (08:44)
[2021-01-31] MEDS: polyethylene glycoL 3350 17 GM POWD.PACK PO ×2 (08:45→22:07)
[2021-01-31] MEDS: LEVOTHYROXINE 150 MCG TABLET PO (08:57)
[2021-01-31] MEDS: MULTIVIT,CALC,MINS/IRON/FOLIC 1 TABLET 1 TAB PO (08:57)
[2021-01-31] MEDS: methocarbamoL 500 MG TABLET PO ×3 (08:58→22:06)
[2021-01-31] MEDS: chlordiazePOXIDE 10 MG CAPSULE 30 MG PO (09:48)
[2021-01-31] MEDS: MAGNESIUM CHLORIDE 64 MG TABLET 128 MG PO (11:52)
--- NOTE | 2021-01-31 13:45 | PM.PN.1 ---
Subjective Subjective Date Patient Seen: 01/31/21 Interval history: SPOKE TO PATIENT WITH HIS AT BEDSIDE WE SPOKE EXTENSIVELY IN REGARD TO THE CASE IN OUR MANAGEMENT GOING ONWARD NO INCREASING CONFUSION NO ALCOHOL SUBSTANCE CRAVING WOULD LIKE TO GO HOME AFTER BEING TREATED HERE Exam Vital Signs (past 8 hours): - 01/31/21 06:50 01/31/21 07:55 01/31/21 08:44 Temperature 98.2 F Pulse Rate 92 H 82 88 Respiratory Rate 16 18 Blood Pressure 135/78 106/75 130/86 Pulse Oximetry 97 01/31/21 09:00 01/31/21 11:49 01/31/21 12:00 Temperature 98.8 F Pulse Rate 87 85 Respiratory Rate 16 20 Blood Pressure 112/80 120/80 Pulse Oximetry 96 98 Oxygen Delivery Method Room Air Oxygen Flow Rate 0 Narrative Exam Narrative: NO ACUTE DISTRESS.? PATIENT IS ALERT ORIENTED X3. HEAD ATRAUMATIC NORMOCEPHALIC NECK : SUPPLE WITHOUT ADENOPATHY NO CAROTID BRUITS EYE:? EOMI, PERRLA, NORMAL CONJUNCTIVA; NO JAUNDICE CHEST:? REGULAR RATE.? ? NO RUBS.? PMI IS NON DISPLACED.? NO MURMURS; NORMAL S1-S2 PULMONARY:? DECREASED BS OVER THE BASES.? MILD BIBASILAR CRACKLES NOTED; NO INCREASED DULLNESS TO PERCUSSION ABDOMEN:? OBESE BUT SOFT.? NONTENDER.? NONDISTENDED.? BOWEL SOUNDS ARE PRESENT IN ALL 4 QUADRANTS.? NO MASS. EXTREMITIES: NO EDEMA..? NO CYANOSIS CLUBBING NOTED. NEURO:? CRANIAL NERVES 2-12 GROSSLY INTACT. NO FOCAL NEUROLOGICAL DEFICIT NOTED. MSK:? NORMAL RANGE OF MOTION FOR AGE.? NO JOINT EFFUSION. SKIN:? NORMAL FOR ETHNICITY; NO ECCHYMOSIS.? NO LESION. ? GOOD? TURGOR.; NO RASHES :? NORMAL EXTERNAL GENITALIA. PSYCH : ? ANXIOUS.? ALERT AWAKE ORIENTED X3 Objective Labs Result Diagrams: 01/31/21 05:00 01/31/21 05:00 Labs: Laboratory Results - last 24 hr 01/30/21 01/31/21 01/31/21 04:50 05:00 05:00 WBC 2.4 L RBC 3.55 L Hgb 11.9 L Hct 35.7 L MCV 100.6 H MCH 33.6 MCHC 33.4 RDW 17.6 H Plt Count 144 L Neut % (Auto) 53.5 Lymph % (Auto) 28.7 [place] % (Auto) 10.4 Eos % (Auto) 6.3 H Baso % (Auto) 1.1 Neut # (Auto) 1300 L Lymph # (Auto) 700 L [place] # (Auto) 300 Eos # (Auto) 200 Baso # (Auto) 0 Sodium Cancelled Potassium Cancelled Chloride Cancelled Carbon Dioxide Cancelled BUN Cancelled Creatinine Cancelled Estimated GFR Cancelled BUN/Creatinine Ratio Cancelled Glucose Cancelled Calcium Cancelled Magnesium 1.6 Total Bilirubin Conjugated Bilirubin Unconjugated Bilirubin AST ALT Alkaline Phosphatase Total Protein Albumin Globulin Albumin/Globulin Ratio Hepatitis A IgM Ab Negative Hep Bs Antigen Negative Hep B Core IgM Ab Negative Hepatitis C Antibody <0.1 Hep C Ab Signal/Cutoff Comment 01/31/21 01/31/21 05:00 05:00 WBC RBC Hgb Hct MCV MCH MCHC RDW Plt Count Neut % (Auto) Lymph % (Auto) [place] % (Auto) Eos % (Auto) Baso % (Auto) Neut # (Auto) Lymph # (Auto) [place] # (Auto) Eos # (Auto) Baso # (Auto) Sodium 136 L Potassium 3.8 Chloride 102 Carbon Dioxide 29 BUN 7 L Creatinine 0.89 Estimated GFR > 60.0 BUN/Creatinine Ratio 7.9 Glucose 173 H Calcium 8.6 Magnesium Total Bilirubin 0.9 0.9 Conjugated Bilirubin 0.0 Unconjugated Bilirubin 0.4 AST 122 H 125 H ALT 71 H 75 H Alkaline Phosphatase 45 47 Total Protein 5.2 L 5.5 L Albumin 3.1 L 3.3 L Globulin 2.1 2.2 Albumin/Globulin Ratio 1.5 1.5 Hepatitis A IgM Ab Hep Bs Antigen Hep B Core IgM Ab Hepatitis C Antibody Hep C Ab Signal/Cutoff [facility] Medical History Alcohol withdrawal Dysphagia History of deep venous thrombosis (06/28/15) Onychomycosis (12/02/14) Squamous cell carcinoma of oral cavity Urinary tract infection Surgical History History of gastrostomy tube placement Family History Mother Alzheimer's disease Father Heart disease Polysubstance abuse Brother Polysubstance abuse Other Alcohol abuse Social History household members: none Smoking Status: Current some day smoker alcohol intake: current Assessment & Plan Assessment & Plan narrative: PROBLEM LIST ?ALCOHOL INTOXICATION.? ACUTE. ? ALCOHOL ABUSE.? EXTENSIVE COUNSELING GIVEN ?POSSIBLE ? ANXIETY AND DEPRESSION.NOS ? MEDICAL NONCOMPLIANCE.? EXTENSIVE COUNSELING GIVEN ?HYPOTHYROIDISM.? PER HISTORY ?HYPERTENSION PER HISTORY ?HYPERLIPIDEMIA PER HISTORY ?ANEMIA.? LIKELY OF CHRONIC DISEASE.? OTHER TYPES COULD BE WORKED OP ?PLAN 01/31 PATIENT IS DECLINING INPATIENT REHAB AT THIS TIME HE WOULD LIKE TO GO HOME AFTER HIS DETOX TIME HERE IN THE HOSPITAL I SPOKE TO PATIENT WITH HIS AT BEDSIDE QUESTIONS AND CONCERNS ADDRESSED TO EVERYONE IN THE ROOM SATISFACTION AND UNDERSTANDING WILL START TAPERING LIBRIUM CONTINUE ATIVAN WITHCIWA PROTOCOL PER HOSPITAL WILL CONTINUE WITH GABAPENTIN, ROBAXIN, BUSPAR AND ZOLOFT WHICH WERE ADDED YESTERDAY CONTINUE WITH TRAZODONE WELL AT NIGHT WILL CONSIDER ADDING SEROQUEL IF INDICATED CLINICALLY PATIENT APPEARED TO BE IMPROVED. NO SIGN OF DTS. LABS INDICATED ADDITIONAL MANAGEMENT PER CLINICAL COURSE PLAN TO DISCHARGE EITHER SATURDAY OR TUESDAY 01/30 ?CONTINUE WITH LIBRIUM T.I.D. ?ATIVAN NEEDED FOR WITHDRAWAL ?WILL ADD GABAPENTIN WELL ROBAXIN ?ADD BUSPAR AND ZOLOFT FOR ANXIETY ?TRAZODONE AT NIGHT ?DISCONTINUE IV FLUID ?MONITOR CLOSELY FOR ANY SIGN OF DTS ?DAILY LABS TO FOLLOW ?FALL AND ASPIRATION PRECAUTIONS ?MAINTAIN SEIZURE PRECAUTIONS WELL ?ADDITIONAL MANAGEMENT INDICATED CLINICALLY Time Spent With Patient Critical Care time: I spent a total of [] minutes of critical care time on this patient's care today; this time is exclusive of procedural time. Quality VTE Deep Vein Thrombosis/Pulmonary Embolism Present on Admission: No
--- NOTE | 2021-01-31 15:03 | CM.DANOTE ---
DCP Assessment: patient is a 60 yr old male who was admitted with active ETOH withdrawal. Cm met with patient at the bedside and explained role. Patient was alert and oriented x4 during CM visit. patient states he is independent with all ADLs and drives at his baseline. CM asked about patient possibly transfering to an inpatient detox facility. 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 CM asked if the patient needed any information on out patient rehab programs. Patient stated he has a plan with [facility] to follow-up with them at discharge for services. Patient gave Cm the name of his counselor there - Thor [phone] ext [phone]. Patient plans on following up with them and working an outpatient rehab program. Cm asked who will be home to help him at [place] patient stated he is currently living alone, he stated he and his are currently and she lives in [facility] but not with him. however stated that his will drive him home at discharge. Patient seems very motivated to follow threw on his outpatient rehab and has a red folder in his room with all the different outpatient programs in the area that he has talked to and contact information. Cm asked if the patient needed or wanted any other information about AA or other resources in the area. patient stated no he thinks he has it covered. I: [place] and medicaid P: DC home with patients plan to follow up with out patient rehab options. specifically [facility]- no identified DC planning needs at this time however Cm department will follow to help assist with any new DC planning needs that might arise Cata Lau RN Case mangment. Discharge Planning/Care Management Discharge Assessment Start: 01/31/21 15:00 Freq: Status: Active Protocol: Document 01/31/21 15:00 (Rec: 01/31/21 15:03 [id number]) Discharge Planning Assessment Assigned Property Management Coordinator Cata Lau RN Case Manger DPOA/Assigned Designee Name Mary ( ) Contact Information [phone] Advance Directives? No Advance Directives on File No History Provided By Patient,Medical Record Prior Living Arrangements House Household Members none Comment Patient and his are seperated at this time- but his will assist with DC needs. Type of transporation used prior to Drives own vehicle admit Independent with ADL's Yes Is patient alert and oriented? Yes Caregiver for Another No Barriers to Discharge No Discharge Plan Home Transportation Arrangement Patients willing to transport patient home at DC if needed Referrals Initiated None needed Additional Comment Patietn refusing inpatient detox center-or Inpatient rehab information patient planning on following up with [facility] outpatient [facility]hab at discharge Whiteboard Updated in Patient Room with Yes name and ext. # of Property Management Coordinator Review Status In Process Next Review Type Continued Stay Review
[2021-01-31] MEDS: ATORVASTATIN 20 MG TABLET 40 MG PO (22:06)
[2021-01-31] MEDS: SERTRALINE 50 MG TABLET PO (22:07)
[2021-01-31] MEDS: TRAZODONE 100 MG TABLET PO (22:07)
[2021-01-31] MEDS: chlordiazePOXIDE 10 MG CAPSULE 20 MG PO (22:07)
[2021-01-31] MEDS: SENNOSIDES 8.6 MG TABLET 17.2 MG PO (22:07)
[2021-01-31] MEDS: INSULIN GLARGINE 100 UNIT/ML 3ML PEN SUBCUT (22:17)
[2021-02-01] VITALS (8 sets, daily range): BP systolic 102–134; BP diastolic 74–95; PULSE 71–89; RESP 16–20; TEMP 36.1–37; O2SAT 94–96
[2021-02-01 05:18] LABS: Add Manual Diff / Slide Review NO; Basophils Absolute Auto 0 /uL (0-100); Basophils Percent Auto 1.1 % (0-2); Eosinophils Absolute Auto 100 /uL (0-450); Hematocrit 35.4 % (41-53); Hemoglobin 11.8 g/dL (13.5-17.5); Lymphocytes Absolute Auto 700 /uL (1100-4500); Lymphocytes Percent Auto 25.9 % (25-40); Mean Corpuscular HGB Conc 33.3 % (30-36); Monocytes Absolute Auto 300 /uL (0-900); Monocytes Percent Auto 10.8 % (3-14); Neutrophils Absolute Auto 1600 /uL (1500-7000); Neutrophils Percent Auto 57.2 % (50-75); Platelet Count 150 X10^3/uL (150-400); Red Blood Cell Count 3.47 X10^6/uL (4.5-5.9); Red Cell Distribution Width 18.1 % (11.6-14.8); White Blood Cell Count 2.9 X10^3/uL (4.5-11.0)
[2021-02-01 05:29] LABS: Alanine Aminotransferase 82 IU/L (<50); Albumin 3.3 g/dL (3.5-5.0); Albumin Globulin Ratio 1.4 (1.0-2.8); Alkaline Phosphatase 50 U/L (38-126); Aspartate Aminotransferase 129 IU/L (17-59); Bilirubin Total 0.7 mg/dL (0.2-1.3); Blood Urea Nitrogen 11 mg/dL (9-20); Carbon Dioxide 32 mmol/L (22-32); Chloride 102 mmol/L (98-107); Estimated Glomerular Filt Rate > 60.0 mL/min (>60); Globulin 2.3 g/dL (1.7-4.1); Glucose 160 mg/dL (70-100); HEMOLYSIS < 15 (0-50); Potassium 4.1 mmol/L (3.4-5.1); Sodium 137 mmol/L (137-145); Total Protein 5.6 g/dL (6.3-8.2)
[2021-02-01 05:30] LABS: Alanine Aminotransferase 82 IU/L (<50); Albumin 3.3 g/dL (3.5-5.0); Albumin Globulin Ratio 1.4 (1.0-2.8); Alkaline Phosphatase 50 U/L (38-126); Aspartate Aminotransferase 129 IU/L (17-59); Bilirubin Total 0.7 mg/dL (0.2-1.3); Bilirubin Unconjugated 0.3 mg/dL (0.0-1.1); Globulin 2.3 g/dL (1.7-4.1); HEMOLYSIS < 15 (0-50); Total Protein 5.6 g/dL (6.3-8.2)
[2021-02-01 05:31] LABS: Magnesium 1.7 mg/dL (1.6-2.3)
[2021-02-01] MEDS: PANTOPRAZOLE DR 40 MG TABLET PO (08:08)
[2021-02-01] MEDS: METOPROLOL ER 25 MG TABLET PO (08:56)
[2021-02-01] MEDS: ENOXAPARIN 40 MG/0.4 ML SYRINGE SUBCUT (08:56)
[2021-02-01] MEDS: GABAPENTIN 300 MG CAPSULE PO ×3 (08:57→21:49)
[2021-02-01] MEDS: MULTIVITAMIN 1 TABLET 1 TAB PO (08:57)
[2021-02-01] MEDS: THIAMINE 100 MG TABLET PO (08:57)
[2021-02-01] MEDS: TAMSULOSIN 0.4 MG CAPSULE PO (08:57)
[2021-02-01] MEDS: methocarbamoL 500 MG TABLET PO ×3 (08:57→21:56)
[2021-02-01] MEDS: BUSPIRONE 5 MG TABLET 10 MG PO (08:57)
[2021-02-01] MEDS: FOLIC ACID 1 MG TABLET PO (08:57)
[2021-02-01] MEDS: chlordiazePOXIDE 10 MG CAPSULE 20 MG PO ×2 (08:57→21:50)
[2021-02-01] MEDS: SODIUM CHLORIDE 0.9% FLUSH 10 ML IV ×2 (08:59→21:30)
[2021-02-01] MEDS: MULTIVIT,CALC,MINS/IRON/FOLIC 1 TABLET 1 TAB PO (09:02)
[2021-02-01] MEDS: LEVOTHYROXINE 150 MCG TABLET PO (09:02)
--- NOTE | 2021-02-01 10:23 | PC.NURSE ---
Addendum entered by Rupal Perkins R.N. 02/01/21 16:05: Relatively uneventful day. Denies any discomfort. Pt requesting information re: meds., info provided HL intact/patent. Continues to sit in chair. Call light w/in reach, calls appropriately for needs. Continue w/plan of care. Original Note: Pt up to chair, requesting to be able to walk in room Pt steady on feet. Lungs clear, SpO2 954% RA CiWa 3 @ this time due to slight tremors Call light w/in reach, pt calls appropriately for needs.
--- NOTE | 2021-02-01 12:24 | P.PN_ITS ---
Subjective Subjective Date Patient Seen: 02/01/21 Interval history: PATIENT REPORTED SOME INCREASED ANXIETY DUE TO PERSONAL ISSUES DENIES ANY INCREASING CONFUSION NO NAUSEA OR VOMITING NO CHEST PAIN. NO TRANSFER FOR TENSIONS Exam Vital Signs (past 8 hours): - 02/01/21 08:00 02/01/21 08:56 02/01/21 10:19 Temperature 98.3 F Pulse Rate 89 Respiratory Rate 18 Blood Pressure 131/95 H 120/87 122/85 Pulse Oximetry 96 Oxygen Delivery Method Room Air Oxygen Flow Rate 0 Narrative Exam Narrative: NO ACUTE DISTRESS.? PATIENT IS ALERT ORIENTED X3. HEAD ATRAUMATIC NORMOCEPHALIC NECK : SUPPLE WITHOUT ADENOPATHY NO CAROTID BRUITS EYE:? EOMI, PERRLA, NORMAL CONJUNCTIVA; NO JAUNDICE CHEST:? REGULAR RATE.? ? NO RUBS.? PMI IS NON DISPLACED.? NO MURMURS; NORMAL S1- S2 PULMONARY:? DECREASED BS OVER THE BASES.? MILD BIBASILAR CRACKLES NOTED; NO INCREASED DULLNESS TO PERCUSSION ABDOMEN:? OBESE BUT SOFT.? NONTENDER.? NONDISTENDED.? BOWEL SOUNDS ARE PRESENT IN ALL 4 QUADRANTS.? NO MASS. EXTREMITIES: NO EDEMA..? NO CYANOSIS CLUBBING NOTED. NEURO:? CRANIAL NERVES 2-12 GROSSLY INTACT. NO FOCAL NEUROLOGICAL DEFICIT NOTED. MSK:? NORMAL RANGE OF MOTION FOR AGE.? NO JOINT EFFUSION. SKIN:? NORMAL FOR ETHNICITY; NO ECCHYMOSIS.? NO LESION. ? GOOD? TURGOR.; NO RASHES :? NORMAL EXTERNAL GENITALIA. PSYCH : ? ANXIOUS.? ALERT AWAKE ORIENTED X3 Objective Labs Result Diagrams: 02/01/21 04:45 02/01/21 04:45 Labs: Laboratory Results - last 24 hr 02/01/21 02/01/21 02/01/21 04:45 04:45 04:45 WBC 2.9 L RBC 3.47 L Hgb 11.8 L Hct 35.4 L MCV 102.0 H MCH 34.0 MCHC 33.3 RDW 18.1 H Plt Count 150 Neut % (Auto) 57.2 Lymph % (Auto) 25.9 [place] % (Auto) 10.8 Eos % (Auto) 5.0 H Baso % (Auto) 1.1 Neut # (Auto) 1600 Lymph # (Auto) 700 L [place] # (Auto) 300 Eos # (Auto) 100 Baso # (Auto) 0 Sodium Potassium Chloride Carbon Dioxide BUN Creatinine Estimated GFR BUN/Creatinine Ratio Glucose Calcium Magnesium 1.7 Total Bilirubin 0.7 Conjugated Bilirubin 0.0 Unconjugated Bilirubin 0.3 AST 129 H ALT 82 H Alkaline Phosphatase 50 Total Protein 5.6 L Albumin 3.3 L Globulin 2.3 Albumin/Globulin Ratio 1.4 02/01/21 04:45 WBC RBC Hgb Hct MCV MCH MCHC RDW Plt Count Neut % (Auto) Lymph % (Auto) [place] % (Auto) Eos % (Auto) Baso % (Auto) Neut # (Auto) Lymph # (Auto) [place] # (Auto) Eos # (Auto) Baso # (Auto) Sodium 137 Potassium 4.1 Chloride 102 Carbon Dioxide 32 BUN 11 Creatinine 1.10 Estimated GFR > 60.0 BUN/Creatinine Ratio 10.0 Glucose 160 H Calcium 9.0 Magnesium Total Bilirubin 0.7 Conjugated Bilirubin Unconjugated Bilirubin AST 129 H ALT 82 H Alkaline Phosphatase 50 Total Protein 5.6 L Albumin 3.3 L Globulin 2.3 Albumin/Globulin Ratio 1.4 [facility] Medical History Alcohol withdrawal Dysphagia History of deep venous thrombosis (06/28/15) Onychomycosis (12/02/14) Squamous cell carcinoma of oral cavity Urinary tract infection Surgical History History of gastrostomy tube placement Family History Mother Alzheimer's disease Father Heart disease Polysubstance abuse Brother Polysubstance abuse Other Alcohol abuse Social History household members: none Smoking Status: Current some day smoker alcohol intake: current Assessment & Plan Assessment & Plan narrative: PROBLEM LIST ?ALCOHOL INTOXICATION.? ACUTE. ? ALCOHOL ABUSE.? EXTENSIVE COUNSELING GIVEN ?POSSIBLE ? ANXIETY AND DEPRESSION.NOS ? MEDICAL NONCOMPLIANCE.? EXTENSIVE COUNSELING GIVEN ?HYPOTHYROIDISM.? PER HISTORY ?HYPERTENSION PER HISTORY ?HYPERLIPIDEMIA PER HISTORY ?ANEMIA.? LIKELY OF CHRONIC DISEASE.? OTHER TYPES COULD BE WORKED OP ?PLAN 02/01 WILL DISCONTINUE CIWA PROTOCOL CONTINUE ATIVAN NEEDED ANXIETY ONLY CONTINUE TO TAPER LIBRIUM WILL SWITCH TO DAILY DEGREE OF ON THE MORNING CONTINUE WITH GABAPENTIN, ROBAXIN, BUSPAR AND ZOLOFT. WILL ADD A SHORT COURSE OF DEXAMETHASONE WELL LABS AND VITAL SIGNS APPEAR TO BE FAIRLY STABLE. MILD NEUTROPENIA WELL ELEVATED BLOOD SUGAR LEVEL NOTED PATIENT WILL NEED EXTENSIVE PSYCHOTHERAPY POST DISCHARGE FOR SUBSTANCE ABUSE ADDITIONAL MANAGEMENT PER CLINICAL COURSE PLAN TO DISCHARGE EITHER SATURDAY OR SATURDAY OF THIS WEEK 01/31 ?PATIENT IS DECLINING INPATIENT REHAB AT THIS TIME ?HE WOULD LIKE TO GO HOME AFTER HIS DETOX TIME HERE IN THE HOSPITAL ?I SPOKE TO PATIENT WITH HIS AT BEDSIDE ?QUESTIONS AND CONCERNS ADDRESSED TO EVERYONE IN THE ROOM SATISFACTION AND UNDERSTANDING ?WILL START TAPERING LIBRIUM ?CONTINUE ATIVAN WITHCIWA PROTOCOL PER HOSPITAL ?WILL CONTINUE WITH GABAPENTIN, ROBAXIN, BUSPAR AND ZOLOFT WHICH WERE ADDED YESTERDAY ?CONTINUE WITH TRAZODONE WELL AT NIGHT ?WILL CONSIDER ADDING SEROQUEL IF INDICATED CLINICALLY ?PATIENT APPEARED TO BE IMPROVED.? NO SIGN OF DTS. ? LABS INDICATED ?ADDITIONAL MANAGEMENT PER CLINICAL COURSE ?PLAN TO DISCHARGE EITHER SATURDAY OR TUESDAY 01/30 ?CONTINUE WITH LIBRIUM T.I.D. ?ATIVAN NEEDED FOR WITHDRAWAL ?WILL ADD GABAPENTIN WELL ROBAXIN ?ADD BUSPAR AND ZOLOFT FOR ANXIETY ?TRAZODONE AT NIGHT ?DISCONTINUE IV FLUID ?MONITOR CLOSELY FOR ANY SIGN OF DTS ?DAILY LABS TO FOLLOW ?FALL AND ASPIRATION PRECAUTIONS ?MAINTAIN SEIZURE PRECAUTIONS WELL ?ADDITIONAL MANAGEMENT INDICATED CLINICALLY Time Spent With Patient Critical Care time: I spent a total of [] minutes of critical care time on this patient's care today; this time is exclusive of procedural time. Quality VTE Deep Vein Thrombosis/Pulmonary Embolism Present on Admission: No
[2021-02-01] MEDS: LORazepam 2 MG/ML INJ 1 MG IV ×2 (12:40→21:56)
--- NOTE | 2021-02-01 12:42 | CM.DPC ---
DCP Cont: Received a call from patient. He stated, he would really like to speak to someone about his diabetes, before he came here, he was borderline diabetic, and now, they are pricking my fingers about 5 times a day and giving me insulin. Patient indicated, I am supposed to discharge in a couple of days and would like some instructions on how to manage this. Let him know that this media planner / buyer will get in touch with client liaison. Called dietary department and left them a message about patient's concerns, and to see if they can see patient soon. Asked hospitalist if dietary consult can be placed, and he gave verbal permission. Placed orders. P: DCP to continue to follow. Plan is home when stable, will see client liaison here at hospital to discuss diet with his new diagnosis before he goes home. He will be following up with [facility] on an outpatient basis for his alcoholism. Sasha Irizarry RN/Supervisor [employer]
[2021-02-01] MEDS: DEXAMETHASONE 10 MG/ML VIAL IV (12:43)
[2021-02-01] MEDS: INSULIN LISPRO 100 UNIT/ML 3ML VIAL SUBCUT ×2 (12:44→17:32)
[2021-02-01] MEDS: MAGNESIUM CHLORIDE 64 MG TABLET 128 MG PO (14:05)
--- NOTE | 2021-02-01 16:44 | DIET.PN1 ---
Dietary Progress Note Assessment: 60y M seeking medical etoh detox diagnosed c DM2 this hospitalization (A1c 7.8) requesting consult c RD for same. Pt worried about BG checks and insulin use once d/c'd. Pt has been preDM for a while and last PCP visit was prescribed Metformin. Pt drinks vodka throughout the day mixed with diet soda. He feels the heavy etoh use has messed with his stomach leading him to eat only 1/2 meal per day. Pt working on setting up medical appointments as part of his support system for continuing sobriety and would like to work on this for DMSE. Our DM educator will be on site Saturday, Feb 03 and will see patient and give information for setting up OP f/u. Pt pleased c plan. Ht: 175.26 cm Wt: 90.2 kg BMI: 29.2 UBW: Last BM: 01/31/21 (01/31/21 15:54) MNA: 10 Jorge Score: 22 Diet: 01/29/21 Dinner Carbohydrate Consistent Diet Diet Modifications: Carbohydrate level: Large (4 CHO) Nutrition Percent Meal Consumed 75% 02/01/21 13:44 Percent Meal Consumed 100% 01/31/21 17:57 Percent Meal Consumed 100% 01/31/21 13:50 Percent Meal Consumed 100% 01/31/21 09:39 Percent Meal Consumed 75% 01/30/21 17:59 Labs: RBC 3.47 X10^6/uL (4.5-5.9) L 02/01/21 04:45 Hgb 11.8 g/dL (13.5-17.5) L 02/01/21 04:45 Hct 35.4 % (41-53) L 02/01/21 04:45 Creatinine 1.10 mg/dL (0.66-1.25) 02/01/21 04:45 Hemoglobin A1c 7.8 % (4.0-6.0) H 01/29/21 16:20 Electronically Signed by: Hyacinth Avendaño 02/01/21 16:44 [address] [address]
[2021-02-01] MEDS: SENNOSIDES 8.6 MG TABLET 17.2 MG PO (21:49)
[2021-02-01] MEDS: ATORVASTATIN 20 MG TABLET 40 MG PO (21:49)
[2021-02-01] MEDS: SERTRALINE 50 MG TABLET PO (21:50)
[2021-02-01] MEDS: MELATONIN 3 MG TABLET 6 MG PO (21:50)
[2021-02-01] MEDS: TRAZODONE 100 MG TABLET PO (21:56)
--- NOTE | 2021-02-01 22:20 | PC.NURSE ---
02/01 @ 2100 Patient refused Blood Sugar check for HS. Reported to Sheila Sauer RN
[2021-02-02] VITALS (8 sets, daily range): BP systolic 98–123; BP diastolic 55–79; PULSE 64–76; RESP 16–18; TEMP 36.3–36.7; O2SAT 94–99
[2021-02-02 05:50] LABS: Add Manual Diff / Slide Review NO; Basophils Absolute Auto 0 /uL (0-100); Basophils Percent Auto 0.4 % (0-2); Eosinophils Absolute Auto 0 /uL (0-450); Eosinophils Percent Auto 0.2 % (2-4); Hematocrit 36.5 % (41-53); Hemoglobin 12.2 g/dL (13.5-17.5); Lymphocytes Absolute Auto 700 /uL (1100-4500); Lymphocytes Percent Auto 17.1 % (25-40); Mean Corpuscular HGB Conc 33.6 % (30-36); Mean Corpuscular Hemoglobin 34.1 PG (26-34); Mean Corpuscular Volume 101.4 fL (80-100); Monocytes Absolute Auto 300 /uL (0-900); Monocytes Percent Auto 6.6 % (3-14); Neutrophils Absolute Auto 3300 /uL (1500-7000); Neutrophils Percent Auto 75.7 % (50-75); Platelet Count 186 X10^3/uL (150-400); Red Cell Distribution Width 17.9 % (11.6-14.8); White Blood Cell Count 4.3 X10^3/uL (4.5-11.0)
[2021-02-02 06:01] LABS: Alanine Aminotransferase 107 IU/L (<50); Albumin 3.6 g/dL (3.5-5.0); Albumin Globulin Ratio 1.4 (1.0-2.8); Alkaline Phosphatase 47 U/L (38-126); Aspartate Aminotransferase 145 IU/L (17-59); BUN Creatinine Ratio 17.3 (6-22); Bilirubin Total 0.7 mg/dL (0.2-1.3); Blood Urea Nitrogen 17 mg/dL (9-20); Calcium 9.5 mg/dL (8.4-10.2); Carbon Dioxide 30 mmol/L (22-32); Chloride 101 mmol/L (98-107); Estimated Glomerular Filt Rate > 60.0 mL/min (>60); Globulin 2.5 g/dL (1.7-4.1); Glucose 244 mg/dL (70-100); HEMOLYSIS < 15 (0-50); Magnesium 1.7 mg/dL (1.6-2.3); Potassium 4.5 mmol/L (3.4-5.1); Sodium 137 mmol/L (137-145); Total Protein 6.1 g/dL (6.3-8.2)
[2021-02-02] MEDS: PANTOPRAZOLE DR 40 MG TABLET PO (06:19)
[2021-02-02] MEDS: LEVOTHYROXINE 150 MCG TABLET PO (06:19)
[2021-02-02 06:20] LABS: Hemoglobin A1C% w Est Avg Glu 7.9 % (4.0-6.0)
[2021-02-02] MEDS: LORazepam 2 MG/ML INJ 1 MG IV ×4 (06:33→20:29)
[2021-02-02] MEDS: chlordiazePOXIDE 10 MG CAPSULE 20 MG PO (08:46)
[2021-02-02] MEDS: ENOXAPARIN 40 MG/0.4 ML SYRINGE SUBCUT (08:46)
[2021-02-02] MEDS: SODIUM CHLORIDE 0.9% FLUSH 10 ML IV ×2 (08:46→20:35)
[2021-02-02] MEDS: BUSPIRONE 5 MG TABLET 10 MG PO ×2 (08:46→20:37)
[2021-02-02] MEDS: TAMSULOSIN 0.4 MG CAPSULE PO (08:46)
[2021-02-02] MEDS: THIAMINE 100 MG TABLET PO (08:47)
[2021-02-02] MEDS: METOPROLOL ER 25 MG TABLET PO (08:47)
[2021-02-02] MEDS: dexAMETHasone 4 MG TABLET PO ×2 (08:47→14:43)
[2021-02-02] MEDS: GABAPENTIN 300 MG CAPSULE PO ×3 (08:47→20:30)
[2021-02-02] MEDS: FOLIC ACID 1 MG TABLET PO (08:47)
[2021-02-02] MEDS: methocarbamoL 500 MG TABLET PO ×3 (09:11→20:31)
[2021-02-02] MEDS: MULTIVIT,CALC,MINS/IRON/FOLIC 1 TABLET 1 TAB PO (09:11)
--- NOTE | 2021-02-02 15:34 | PM.PN.1 ---
Subjective Subjective Interval history: 60-YEAR-OLD MALE BEING TREATED FOR ALCOHOL ABUSE REQUESTED IN HOUSE DETOX TODAY NO SIGNIFICANT COMPLAINTS NO SIGNIFICANT ISSUES WITH HER BY NURSING OVERNIGHT Exam Vital Signs (past 8 hours): - 02/02/21 07:45 02/02/21 08:44 02/02/21 11:35 Temperature 97.9 F 97.4 F L Pulse Rate 66 66 65 Respiratory Rate 18 18 16 Blood Pressure 108/70 108/70 103/71 Pulse Oximetry 96 96 Oxygen Delivery Method Room Air Oxygen Flow Rate 0 Narrative Exam Narrative: NO ACUTE DISTRESS.? PATIENT IS ALERT ORIENTED X3. HEAD ATRAUMATIC NORMOCEPHALIC NECK : SUPPLE WITHOUT ADENOPATHY NO CAROTID BRUITS EYE:? EOMI, PERRLA, NORMAL CONJUNCTIVA; NO JAUNDICE CHEST:? REGULAR RATE.? ? NO RUBS.? PMI IS NON DISPLACED.? NO MURMURS; NORMAL S1-S2 PULMONARY:? DECREASED BS OVER THE BASES.? MILD BIBASILAR CRACKLES NOTED; NO INCREASED DULLNESS TO PERCUSSION ABDOMEN:? OBESE BUT SOFT.? NONTENDER.? NONDISTENDED.? BOWEL SOUNDS ARE PRESENT IN ALL 4 QUADRANTS.? NO MASS. EXTREMITIES: NO EDEMA..? NO CYANOSIS CLUBBING NOTED. NEURO:? CRANIAL NERVES 2-12 GROSSLY INTACT. NO FOCAL NEUROLOGICAL DEFICIT NOTED. MSK:? NORMAL RANGE OF MOTION FOR AGE.? NO JOINT EFFUSION. SKIN:? NORMAL FOR ETHNICITY; NO ECCHYMOSIS.? NO LESION. ? GOOD? TURGOR.; NO RASHES :? NORMAL EXTERNAL GENITALIA. PSYCH : ? ANXIOUS.? ALERT AWAKE ORIENTED X3 Objective Labs Result Diagrams: 02/02/21 04:55 02/02/21 04:55 Labs: Laboratory Results - last 24 hr 02/02/21 02/02/21 02/02/21 04:55 04:55 04:55 WBC 4.3 L RBC 3.60 L Hgb 12.2 L Hct 36.5 L MCV 101.4 H MCH 34.1 H MCHC 33.6 RDW 17.9 H Plt Count 186 Neut % (Auto) 75.7 H Lymph % (Auto) 17.1 L [place] % (Auto) 6.6 Eos % (Auto) 0.2 L Baso % (Auto) 0.4 Neut # (Auto) 3300 Lymph # (Auto) 700 L [place] # (Auto) 300 Eos # (Auto) 0 Baso # (Auto) 0 Sodium 137 Potassium 4.5 Chloride 101 Carbon Dioxide 30 BUN 17 Creatinine 0.98 Estimated GFR > 60.0 BUN/Creatinine Ratio 17.3 Glucose 244 H Hemoglobin A1c 7.9 H Calcium 9.5 Magnesium 1.7 Total Bilirubin 0.7 AST 145 H ALT 107 H Alkaline Phosphatase 47 Total Protein 6.1 L Albumin 3.6 Globulin 2.5 Albumin/Globulin Ratio 1.4 PFSH Medical History Alcohol withdrawal Dysphagia History of deep venous thrombosis (06/28/15) Onychomycosis (12/02/14) Squamous cell carcinoma of oral cavity Urinary tract infection Surgical History History of gastrostomy tube placement Family History Mother Alzheimer's disease Father Heart disease Polysubstance abuse Brother Polysubstance abuse Other Alcohol abuse Social History household members: none Smoking Status: Current some day smoker alcohol intake: current Assessment & Plan Assessment & Plan narrative: PROBLEM LIST ?ALCOHOL INTOXICATION.? ACUTE. ? ALCOHOL ABUSE.? EXTENSIVE COUNSELING GIVEN ?POSSIBLE ? ANXIETY AND DEPRESSION.NOS ? MEDICAL NONCOMPLIANCE.? EXTENSIVE COUNSELING GIVEN ?HYPOTHYROIDISM.? PER HISTORY ?HYPERTENSION PER HISTORY ?HYPERLIPIDEMIA PER HISTORY ?ANEMIA.? LIKELY OF CHRONIC DISEASE.? OTHER TYPES COULD BE WORKED OP ?PLAN 02/02 WILL TAPER LIBRIUM TO DAILY INCREASE FOR BUSPAR TO TWICE A DAY WILL ALSO CHANGE DEXAMETHASONE TO DAILY CONTINUE GABAPENTIN, ROBAXIN, SERTRALINE PREVIOUSLY ORDERED ADDITIONAL MANAGEMENT PER CLINICAL COURSE LIKELY DISCHARGE IN THE NEXT 24-48 HOURS 02/01 ?WILL DISCONTINUE CIWA PROTOCOL ?CONTINUE ATIVAN NEEDED ANXIETY ONLY ?CONTINUE TO? TAPER LIBRIUM ?WILL SWITCH TO DAILY DEGREE OF ON THE MORNING ? CONTINUE WITH GABAPENTIN, ROBAXIN, BUSPAR AND ZOLOFT. ? WILL ADD A SHORT COURSE OF DEXAMETHASONE WELL ?LABS AND VITAL SIGNS APPEAR TO BE FAIRLY STABLE. ? MILD NEUTROPENIA WELL ELEVATED BLOOD SUGAR LEVEL NOTED ? ?PATIENT WILL NEED EXTENSIVE PSYCHOTHERAPY POST DISCHARGE FOR SUBSTANCE ABUSE ?ADDITIONAL MANAGEMENT PER CLINICAL COURSE ?PLAN TO DISCHARGE EITHER SATURDAY OR SATURDAY OF THIS WEEK 01/31 ?PATIENT IS DECLINING INPATIENT REHAB AT THIS TIME ?HE WOULD LIKE TO GO HOME AFTER HIS DETOX TIME HERE IN THE HOSPITAL ?I SPOKE TO PATIENT WITH HIS AT BEDSIDE ?QUESTIONS AND CONCERNS ADDRESSED TO EVERYONE IN THE ROOM SATISFACTION AND UNDERSTANDING ?WILL START TAPERING LIBRIUM ?CONTINUE ATIVAN WITHCIWA PROTOCOL PER HOSPITAL ?WILL CONTINUE WITH GABAPENTIN, ROBAXIN, BUSPAR AND ZOLOFT WHICH WERE ADDED YESTERDAY ?CONTINUE WITH TRAZODONE WELL AT NIGHT ?WILL CONSIDER ADDING SEROQUEL IF INDICATED CLINICALLY ?PATIENT APPEARED TO BE IMPROVED.? NO SIGN OF DTS. ? LABS INDICATED ?ADDITIONAL MANAGEMENT PER CLINICAL COURSE ?PLAN TO DISCHARGE EITHER SATURDAY OR TUESDAY 01/30 ?CONTINUE WITH LIBRIUM T.I.D. ?ATIVAN NEEDED FOR WITHDRAWAL ?WILL ADD GABAPENTIN WELL ROBAXIN ?ADD BUSPAR AND ZOLOFT FOR ANXIETY ?TRAZODONE AT NIGHT ?DISCONTINUE IV FLUID ?MONITOR CLOSELY FOR ANY SIGN OF DTS ?DAILY LABS TO FOLLOW ?FALL AND ASPIRATION PRECAUTIONS ?MAINTAIN SEIZURE PRECAUTIONS WELL ?ADDITIONAL MANAGEMENT INDICATED CLINICALLY Time Spent With Patient Critical Care time: I spent a total of [] minutes of critical care time on this patient's care today; this time is exclusive of procedural time. Quality VTE Deep Vein Thrombosis/Pulmonary Embolism Present on Admission: No
[2021-02-02] MEDS: TRAZODONE 100 MG TABLET PO (20:30)
[2021-02-02] MEDS: ATORVASTATIN 20 MG TABLET 40 MG PO (20:30)
[2021-02-02] MEDS: SENNOSIDES 8.6 MG TABLET 17.2 MG PO (20:30)
[2021-02-02] MEDS: MELATONIN 3 MG TABLET 6 MG PO (20:30)
[2021-02-02] MEDS: SERTRALINE 50 MG TABLET PO (20:31)
--- NOTE | 2021-02-02 21:14 | PC.NURSE ---
a/o, voices needs, Independant w/ cares and mobility, denies pain/discomfort. reports s/sx of anxiety, requested Ativan IV. CIWA - 4 for tremors and anxiety. patient states he has been drinking alcohol since a young age, and was drinking recently to prevent withdrawal symptoms in the mornings, most specifically nausea and vomiting. patient states he has a plan in place for outpatient treatment, at local facility [facility], and has a meeting w/ them this coming Saturday.
[2021-02-03] VITALS: BP 110/76; PULSE 69; RESP 18; TEMP 36.6; O2SAT 95
[2021-02-03 04:00] VITALS: BP 115/74; PULSE 72; RESP 18; TEMP 36.3; O2SAT 95
[2021-02-03 06:05] LABS: Add Manual Diff / Slide Review NO; Basophils Absolute Auto 0 /uL (0-100); Basophils Percent Auto 0.4 % (0-2); Eosinophils Absolute Auto 0 /uL (0-450); Eosinophils Percent Auto 0.1 % (2-4); Hematocrit 38.7 % (41-53); Hemoglobin 12.8 g/dL (13.5-17.5); Lymphocytes Absolute Auto 800 /uL (1100-4500); Lymphocytes Percent Auto 17.7 % (25-40); Mean Corpuscular Hemoglobin 33.7 PG (26-34); Mean Corpuscular Volume 102.1 fL (80-100); Monocytes Absolute Auto 200 /uL (0-900); Monocytes Percent Auto 5.5 % (3-14); Neutrophils Absolute Auto 3400 /uL (1500-7000); Neutrophils Percent Auto 76.3 % (50-75); Platelet Count 191 X10^3/uL (150-400); Red Cell Distribution Width 17.7 % (11.6-14.8); White Blood Cell Count 4.5 X10^3/uL (4.5-11.0)
[2021-02-03 06:07] LABS: Alanine Aminotransferase 131 IU/L (<50); Albumin 4.2 g/dL (3.5-5.0); Albumin Globulin Ratio 1.7 (1.0-2.8); Alkaline Phosphatase 56 U/L (38-126); Aspartate Aminotransferase 175 IU/L (17-59); BUN Creatinine Ratio 27.4 (6-22); Bilirubin Total 0.7 mg/dL (0.2-1.3); Blood Urea Nitrogen 23 mg/dL (9-20); Calcium 9.5 mg/dL (8.4-10.2); Carbon Dioxide 26 mmol/L (22-32); Chloride 102 mmol/L (98-107); Estimated Glomerular Filt Rate > 60.0 mL/min (>60); Globulin 2.5 g/dL (1.7-4.1); Glucose 241 mg/dL (70-100); HEMOLYSIS 19 (0-50); Magnesium 1.7 mg/dL (1.6-2.3); Potassium 4.3 mmol/L (3.4-5.1); Sodium 139 mmol/L (137-145); Total Protein 6.7 g/dL (6.3-8.2)
[2021-02-03] MEDS: LORazepam 2 MG/ML INJ 1 MG IV ×2 (06:10→11:14)
[2021-02-03] MEDS: LEVOTHYROXINE 150 MCG TABLET PO (06:19)
[2021-02-03] MEDS: PANTOPRAZOLE DR 40 MG TABLET PO (06:19)
[2021-02-03 07:15] VITALS: BP 99/67; PULSE 66; RESP 18; TEMP 36.3; O2SAT 97
--- NOTE | 2021-02-03 07:48 | PM.PN.1 ---
Subjective Subjective Interval history: 60-YEAR-OLD MALE BEING TREATED FOR ALCOHOL INTOXICATION WITHOUT WITHDRAWAL. HE WANTED DETOX BUT REFUSED LONG-TERM REHAB TODAY SPOKE AT LENGTH TO THE PATIENT IN REGARD TO THE CASE HE FEELS LIKE IT IS GETTING BETTER HE DENIES ANY CHANGE IN MENTATION. HE FEELS STRONGER HE DENIES ANY ALCOHOL CRAVING NO CHEST PAIN. NO SHORTNESS OF BREATH HAD SOME MULTIPLE BOWEL MOVEMENTS OVER THE LAST FEW DAYS Exam Vital Signs (past 8 hours): - 02/03/21 00:00 02/03/21 04:00 Temperature 97.8 F 97.4 F L Pulse Rate 69 72 Respiratory Rate 18 18 Blood Pressure 110/76 115/74 Pulse Oximetry 95 95 Oxygen Delivery Method Room Air Oxygen Flow Rate 0 Narrative Exam Narrative: NO ACUTE DISTRESS.? PATIENT IS ALERT ORIENTED X3. APPEARS OLDER THAN STATED AGE HEAD ATRAUMATIC NORMOCEPHALIC NECK : SUPPLE WITHOUT ADENOPATHY NO CAROTID BRUITS EYE:? EOMI, PERRLA, NORMAL CONJUNCTIVA; NO JAUNDICE CHEST:? REGULAR RATE.? ? NO RUBS.? PMI IS NON DISPLACED.? NO MURMURS; NORMAL S1-S2 PULMONARY:? DECREASED BS OVER THE BASES.? MILD BIBASILAR CRACKLES NOTED; NO INCREASED DULLNESS TO PERCUSSION ABDOMEN:? OBESE BUT SOFT.? NONTENDER.? NONDISTENDED.? BOWEL SOUNDS ARE PRESENT IN ALL 4 QUADRANTS.? NO MASS. EXTREMITIES: NO EDEMA..? NO CYANOSIS CLUBBING NOTED. NEURO:? CRANIAL NERVES 2-12 GROSSLY INTACT. NO FOCAL NEUROLOGICAL DEFICIT NOTED. MSK:? NORMAL RANGE OF MOTION FOR AGE.? NO JOINT EFFUSION. SKIN:? NORMAL FOR ETHNICITY; NO ECCHYMOSIS.? NO LESION. ? GOOD? TURGOR.; NO RASHES :? NORMAL EXTERNAL GENITALIA. PSYCH : ? ANXIOUS.? ALERT AWAKE ORIENTED X3 Objective Labs Result Diagrams: 02/03/21 05:40 02/03/21 05:40 Labs: Laboratory Results - last 24 hr 02/03/21 02/03/21 05:40 05:40 WBC 4.5 RBC 3.80 L Hgb 12.8 L Hct 38.7 L MCV 102.1 H MCH 33.7 MCHC 33.0 RDW 17.7 H Plt Count 191 Neut % (Auto) 76.3 H Lymph % (Auto) 17.7 L [place] % (Auto) 5.5 Eos % (Auto) 0.1 L Baso % (Auto) 0.4 Neut # (Auto) 3400 Lymph # (Auto) 800 L [place] # (Auto) 200 Eos # (Auto) 0 Baso # (Auto) 0 Sodium 139 Potassium 4.3 Chloride 102 Carbon Dioxide 26 BUN 23 H Creatinine 0.84 Estimated GFR > 60.0 BUN/Creatinine Ratio 27.4 H Glucose 241 H Calcium 9.5 Magnesium 1.7 Total Bilirubin 0.7 AST 175 H ALT 131 H Alkaline Phosphatase 56 Total Protein 6.7 Albumin 4.2 Globulin 2.5 Albumin/Globulin Ratio 1.7 [facility] Medical History Alcohol withdrawal Dysphagia History of deep venous thrombosis (06/28/15) Onychomycosis (12/02/14) Squamous cell carcinoma of oral cavity Urinary tract infection Surgical History History of gastrostomy tube placement Family History Mother Alzheimer's disease Father Heart disease Polysubstance abuse Brother Polysubstance abuse Other Alcohol abuse Social History household members: none Smoking Status: Current some day smoker alcohol intake: current Assessment & Plan Assessment & Plan narrative: PROBLEM LIST ?ALCOHOL INTOXICATION.? ACUTE. ? ALCOHOL ABUSE.? EXTENSIVE COUNSELING GIVEN ?POSSIBLE ? ANXIETY AND DEPRESSION.NOS ? MEDICAL NONCOMPLIANCE.? EXTENSIVE COUNSELING GIVEN ?HYPOTHYROIDISM.? PER HISTORY ?HYPERTENSION PER HISTORY ?HYPERLIPIDEMIA PER HISTORY ?ANEMIA.? LIKELY OF CHRONIC DISEASE.? OTHER TYPES COULD BE WORKED OP ?PLAN 02/03 PATIENT SHOWING SIGNIFICANT IMPROVEMENT WILL DECREASE LIBRIUM TO 10 MG DAILY WILL ALSO MAKE CHANGES TO HIS DIABETIC MEDICATIONS WILL STOP LANTUS PATIENT STARTED ON GLYBURIDE WILL ALSO ADD METFORMIN PATIENT TO MEET WITH THE ADVERTISING ACCOUNT MANAGER PRIOR TO DISCHARGE WELL CONTINUE WITH DIABETIC DIET IF PATIENT CONTINUED TO IMPROVE, SHOULD BE ABLE TO BE DISCHARGED IN NEXT 24 HOURS ADDITIONAL MANAGEMENT PER CLINICAL COURSE 02/02 ?WILL TAPER LIBRIUM TO DAILY ?INCREASE FOR BUSPAR TO TWICE A DAY ?WILL ALSO CHANGE? DEXAMETHASONE? TO DAILY ?CONTINUE GABAPENTIN, ROBAXIN, SERTRALINE PREVIOUSLY ORDERED ?ADDITIONAL MANAGEMENT PER CLINICAL COURSE ?LIKELY DISCHARGE IN THE NEXT 24-48 HOURS 02/01 ?WILL DISCONTINUE CIWA PROTOCOL ?CONTINUE ATIVAN NEEDED ANXIETY ONLY ?CONTINUE TO? TAPER LIBRIUM ?WILL SWITCH TO DAILY DEGREE OF ON THE MORNING ? CONTINUE WITH GABAPENTIN, ROBAXIN, BUSPAR AND ZOLOFT. ? WILL ADD A SHORT COURSE OF DEXAMETHASONE WELL ?LABS AND VITAL SIGNS APPEAR TO BE FAIRLY STABLE. ? MILD NEUTROPENIA WELL ELEVATED BLOOD SUGAR LEVEL NOTED ? ?PATIENT WILL NEED EXTENSIVE PSYCHOTHERAPY POST DISCHARGE FOR SUBSTANCE ABUSE ?ADDITIONAL MANAGEMENT PER CLINICAL COURSE ?PLAN TO DISCHARGE EITHER SATURDAY OR SATURDAY OF THIS WEEK 01/31 ?PATIENT IS DECLINING INPATIENT REHAB AT THIS TIME ?HE WOULD LIKE TO GO HOME AFTER HIS DETOX TIME HERE IN THE HOSPITAL ?I SPOKE TO PATIENT WITH HIS AT BEDSIDE ?QUESTIONS AND CONCERNS ADDRESSED TO EVERYONE IN THE ROOM SATISFACTION AND UNDERSTANDING ?WILL START TAPERING LIBRIUM ?CONTINUE ATIVAN WITHCIWA PROTOCOL PER HOSPITAL ?WILL CONTINUE WITH GABAPENTIN, ROBAXIN, BUSPAR AND ZOLOFT WHICH WERE ADDED YESTERDAY ?CONTINUE WITH TRAZODONE WELL AT NIGHT ?WILL CONSIDER ADDING SEROQUEL IF INDICATED CLINICALLY ?PATIENT APPEARED TO BE IMPROVED.? NO SIGN OF DTS. ? LABS INDICATED ?ADDITIONAL MANAGEMENT PER CLINICAL COURSE ?PLAN TO DISCHARGE EITHER SATURDAY OR TUESDAY 01/30 ?CONTINUE WITH LIBRIUM T.I.D. ?ATIVAN NEEDED FOR WITHDRAWAL ?WILL ADD GABAPENTIN WELL ROBAXIN ?ADD BUSPAR AND ZOLOFT FOR ANXIETY ?TRAZODONE AT NIGHT ?DISCONTINUE IV FLUID ?MONITOR CLOSELY FOR ANY SIGN OF DTS ?DAILY LABS TO FOLLOW ?FALL AND ASPIRATION PRECAUTIONS ?MAINTAIN SEIZURE PRECAUTIONS WELL ?ADDITIONAL MANAGEMENT INDICATED CLINICALLY Time Spent With Patient Critical Care time: I spent a total of [] minutes of critical care time on this patient's care today; this time is exclusive of procedural time. Quality VTE Deep Vein Thrombosis/Pulmonary Embolism Present on Admission: No
[2021-02-03 09:00] VITALS: BP 99/67
[2021-02-03] MEDS: ENOXAPARIN 40 MG/0.4 ML SYRINGE SUBCUT (09:43)
[2021-02-03] MEDS: chlordiazePOXIDE 10 MG CAPSULE PO (09:44)
[2021-02-03] MEDS: GABAPENTIN 300 MG CAPSULE PO ×2 (09:44→13:51)
[2021-02-03] MEDS: methocarbamoL 500 MG TABLET PO (09:44)
[2021-02-03] MEDS: TAMSULOSIN 0.4 MG CAPSULE PO (09:44)
[2021-02-03] MEDS: FOLIC ACID 1 MG TABLET PO (09:44)
[2021-02-03] MEDS: MULTIVITAMIN 1 TABLET 1 TAB PO (09:44)
[2021-02-03] MEDS: SODIUM CHLORIDE 0.9% FLUSH 10 ML IV (09:45)
[2021-02-03] MEDS: BUSPIRONE 5 MG TABLET 10 MG PO (09:45)
[2021-02-03] MEDS: dexAMETHasone 4 MG TABLET PO (09:45)
[2021-02-03] MEDS: METFORMIN HCL 500 MG TABLET PO (09:48)
[2021-02-03] MEDS: glyBURIDE 2.5 MG TABLET 5 MG PO (10:00)
--- NOTE | 2021-02-03 11:21 | CM.DPC ---
DCP continued: stated during rounds that patient was medically ready for DC today but patient didn't want to DC home today but wanted to go home tomorrow. MD stated patient was very decided that he was staying today and DC home tomorrow- CM met with patient and explained role- CM explained to patient that the doctor placed a DC order in for the patient and that he is being DC today. Patient said he doesn't have a ride set up or his sober blind teacher ready for when he DC until tomorrow. CM explained that MD placed DC orders for today and that CM can set up a taxi to help him get home if he does not have a ride and we can wait until this evening to DC if that helps him get his sober blind teacher to come over today instead of tomorrow. Patient was very angry and stated he will figure it out and he will get his own ride set up. Patient then said the MD told him his treatment would take 6 day and so he would DC on Saturday that is why he set up everything for Saturday. MICAELA spoke with and he stated that he never told the patient he would need to be here 6 days.. MD did say that his taper can take 5 days But DC was always based on patients Withdrawal and his need to be an INPT. MICAELA relayed this to the patient and he stated frustration and a plan for DC from the hospital for later this afternoon. Patient asked that his medications be sent to [facility] here in [place] - CM relayed that information to the MD who stated he will send them. P: DC home today with family transportation. No identified DC planning needs noted at this time but will continue to work with staff and the patient to facilitate a smooth and appropriate DC home. Cata Lau RN Case manger
--- NOTE | 2021-02-03 11:40 | DIET.CONS ---
Dietary Consultation Note Admission Date: 01/29/2021 19:04 Assessment: 60 y/o M treated for ETOH intoxication. Newly dx with T2DM, A1c of 7.8%. Plans to d/c today. Good PO recently. States prior to admit he was eating 1/2 meal per day, vomiting blood at times, and drinking 1 qt vodka per day. States he has been dx c prediabetes in the past and rx'd Metformin, which he was not taking since he was not eating. Has a number of questions, including what to eat, why he was on insulin, and if he should start a keto diet. Has some knowledge about carb counting since ordering off menu at . Plans to see PCP at [facility] after discharge. Ht: 175.26 cm Wt: 90.5 kg BMI: 29.2 Last BM: 01/31/21 (01/31/21 15:54) MNA: 10 Jorge Score: 22 Diet: 01/29/21 Dinner Carbohydrate Consistent Diet Diet Modifications: Carbohydrate level: Large (4 CHO) Nutrition Percent Meal Consumed 75% 02/03/21 10:15 Percent Meal Consumed 75% 02/02/21 17:45 Percent Meal Consumed 75% 02/02/21 14:17 Percent Meal Consumed 25% 02/02/21 09:00 Percent Meal Consumed 75% 02/01/21 13:44 Labs: RBC 3.80 X10^6/uL (4.5-5.9) L 02/03/21 05:40 Hgb 12.8 g/dL (13.5-17.5) L 02/03/21 05:40 Hct 38.7 % (41-53) L 02/03/21 05:40 Creatinine 0.84 mg/dL (0.66-1.25) 02/03/21 05:40 Hemoglobin A1c 7.9 % (4.0-6.0) H 02/02/21 04:55 Nutrition Diagnosis: Altered nutrition lab r/t newly dx T2DM aeb hgA1c of 7.8% Interventions: 1. Sobriety nutrition and liver health 2. DM medications 3. Nutrition reccs for DM and carb counting and plate method 4. DM ed OP resources 5. DM pathophysiology ed 6. HgA1c goal and current lab Monitoring/Evaluations: consult prn Electronically Signed by: Jo-Ann Littlejohn 02/03/21 11:40 Clinical Dietitian, [address] [id number]
[2021-02-03 11:50] VITALS: BP 99/63; PULSE 71; RESP 18; TEMP 36.4; O2SAT 98
--- NOTE | 2021-02-03 12:02 | PM.DS.1 ---
History of Present Illness History of Present Illness Date Patient Seen: 02/03/21 Chief complaint: Requesting alcohol detox Narrative: History of Present Illness History of Present Illness Date Patient Seen:?01/29/21 Time Patient Seen:?22:00 Narrative: Benedict Crawford is a 60-year-old male with a history of chronic continuous alcohol abuse, squamous cell carcinoma of the tongue, diabetes type 2 with marginal control, multiple thrombi currently anticoagulated on Pradaxa, hyperlipidemia, and hypothyroidism to the emergency department after being turned down at [facility].? He was initially accepted for alcohol rehab but because he was actively withdrawing they referred him to [facility] emergency department and they would not admit him because they were full.? He states that his form of withdrawals consists of vomiting and what he calls seizures which sounds to me like vomiting.? He has pain in his chest and esophagus he has been coughing up bloody phlegm, intractable vomiting, persistent nausea, states he has short bursts of urination as well as bowel movements.? He states that the vomiting is only relieved by drinking alcohol which he seems to do about 2-3 times per day.? He endorses having sweats and a choking sensation. He is not interested in inpatient rehab because he owns a business and is concerned that his business which would be shut down if he were absent for any length of time.? Patient has a history of squamous cell carcinoma of his tongue and has a history of having tube feedings in the past. Labs done in the ED include WBC of 3.7 RBC 4.22 hemoglobin and hematocrit within normal limits, platelet count 189, sodium 134, chloride 94, BUN 5, glucose 213, hemoglobin A1c of 7.8, AST 188, ALT 105, TSH of 33, free T4 is within normal limits at 0.96, alcohol level was 116, COVID-19 PCR is negative. Discharge Providers Provider Date of admission: 01/29/21 19:04 Discharge Date: 02/03/21 Consults: 01/29/21 20:00 Consult to Discharge Planning Routine Comment: 01/29/21 23:20 Consult to Discharge Planning Routine Comment: 01/30/21 11:00 Consult to DIRECTOR OF HOME HEALTH SERVICES - Ship [employer]iner Routine Comment: seeking outpatient etoh rehab DIRECTOR OF HOME HEALTH SERVICES Consult: Substance Abuse Assess 02/01/21 12:35 Consult to Dietitian, Adult Routine Comment: Reason For Exam: Dietary consult for Diabetes Discharge provider: Andrea Connolly, Summary Hospital Course Discharge Diagnosis: ?ALCOHOL INTOXICATION.? ACUTE. ? ALCOHOL ABUSE.? EXTENSIVE COUNSELING GIVEN ?POSSIBLE ? ANXIETY AND DEPRESSION.NOS ? MEDICAL NONCOMPLIANCE.? EXTENSIVE COUNSELING GIVEN ?HYPOTHYROIDISM.? PER HISTORY ?HYPERTENSION PER HISTORY ?HYPERLIPIDEMIA PER HISTORY ?ANEMIA.? LIKELY OF CHRONIC DISEASE.? OTHER TYPES COULD BE WORKED OP Hospital Course: PATIENT ADMITTED TO THE HOSPITAL WITH ACUTE ALCOHOL INTOXICATION REQUESTING DETOX HE WAS STARTED ON LIBRIUM WHICH HAS BEEN TAPERED OVER THE LAST FEW DAYS. PATIENT SHOWING SIGN OF ANXIETY WELL. HE WAS STARTED ON BUSPAR WELL ZOLOFT. GABAPENTIN ADDED TO HELP WITH HIS ADDICTION. PATIENT ALSO STARTED ON TRAZODONE AT NIGHT TO HELP HIM SLEEP. THIS WILL ALSO HELP WITH ANXIETY. PATIENT HAS BEEN SET UP FOR OUTPATIENT TREATMENT THERAPY REGARD TO SUBSTANCE ABUSE. HE REFUSE INPATIENT ADMISSION. HE WAS ACCEPTED TO 1 FACILITY BUT DECLINED FOR PERSONAL REASONS. PATIENT APPEARS TO BE AT BASELINE AT THIS TIME. HE WILL BE DISCHARGED TO HOME. ADDITIONAL MANAGEMENT PER OUTPATIENT PROVIDERS Status at Discharge Cognitive/behavioral status at discharge: oriented Functional status at discharge: independent ambulation Overall status at discharge: patient is back to baseline Time Spent with Patient Time spent: Greater than 30 minutes Exam Vital Signs (past 8 hours): - 02/03/21 07:15 02/03/21 09:00 Temperature 97.4 F L Pulse Rate 66 Respiratory Rate 18 Blood Pressure 99/67 99/67 Pulse Oximetry 97 Oxygen Delivery Method Room Air Oxygen Flow Rate 0 Narrative Exam Narrative: NO ACUTE DISTRESS.? PATIENT IS ALERT ORIENTED X3. APPEARS OLDER THAN STATED AGE HEAD ATRAUMATIC NORMOCEPHALIC NECK : SUPPLE WITHOUT ADENOPATHY NO CAROTID BRUITS EYE:? EOMI, PERRLA, NORMAL CONJUNCTIVA; NO JAUNDICE CHEST:? REGULAR RATE.? ? NO RUBS.? PMI IS NON DISPLACED.? NO MURMURS; NORMAL S1-S2 PULMONARY:? DECREASED BS OVER THE BASES.? MILD BIBASILAR CRACKLES NOTED; NO INCREASED DULLNESS TO PERCUSSION ABDOMEN:? OBESE BUT SOFT.? NONTENDER.? NONDISTENDED.? BOWEL SOUNDS ARE PRESENT IN ALL 4 QUADRANTS.? NO MASS. EXTREMITIES: NO EDEMA..? NO CYANOSIS CLUBBING NOTED. NEURO:? CRANIAL NERVES 2-12 GROSSLY INTACT. NO FOCAL NEUROLOGICAL DEFICIT NOTED. MSK:? NORMAL RANGE OF MOTION FOR AGE.? NO JOINT EFFUSION. SKIN:? NORMAL FOR ETHNICITY; NO ECCHYMOSIS.? NO LESION. ? GOOD? TURGOR.; NO RASHES :? NORMAL EXTERNAL GENITALIA. PSYCH : ? ANXIOUS.? ALERT AWAKE ORIENTED X3 Objective Labs Result Diagrams: 02/03/21 05:40 02/03/21 05:40 Labs: Laboratory Results - last 24 hr 02/03/21 02/03/21 05:40 05:40 WBC 4.5 RBC 3.80 L Hgb 12.8 L Hct 38.7 L MCV 102.1 H MCH 33.7 MCHC 33.0 RDW 17.7 H Plt Count 191 Neut % (Auto) 76.3 H Lymph % (Auto) 17.7 L [place] % (Auto) 5.5 Eos % (Auto) 0.1 L Baso % (Auto) 0.4 Neut # (Auto) 3400 Lymph # (Auto) 800 L [place] # (Auto) 200 Eos # (Auto) 0 Baso # (Auto) 0 Sodium 139 Potassium 4.3 Chloride 102 Carbon Dioxide 26 BUN 23 H Creatinine 0.84 Estimated GFR > 60.0 BUN/Creatinine Ratio 27.4 H Glucose 241 H Calcium 9.5 Magnesium 1.7 Total Bilirubin 0.7 AST 175 H ALT 131 H Alkaline Phosphatase 56 Total Protein 6.7 Albumin 4.2 Globulin 2.5 Albumin/Globulin Ratio 1.7 PFSH Medical History Alcohol withdrawal Dysphagia History of deep venous thrombosis (06/28/15) Onychomycosis (12/02/14) Squamous cell carcinoma of oral cavity Urinary tract infection Surgical History History of gastrostomy tube placement Family History Mother Alzheimer's disease Father Heart disease Polysubstance abuse Brother Polysubstance abuse Other Alcohol abuse Social History household members: none Smoking Status: Current some day smoker alcohol intake: current Discharge Plan Discharge Plan Patient Disposition: Home Nursing Discharge Comment: FOLLOW-UP WITH PRIMARY CARE PHYSICIAN WITHIN 1-2 WEEKS Discharge orders & Medications Prescriptions: New methocarbamol 500 mg Tablet 500 mg PO TID Qty: 90 0RF buspirone 5 mg Tablet 10 mg PO BID Qty: 60 0RF metformin 500 mg Tablet 500 mg PO 0800,1700 Qty: 120 0RF sennosides [senna] 8.6 mg Tablet 17.2 mg PO BEDTIME Qty: 60 0RF polyethylene glycol 3350 17 gram Powder In Packet 17 gm PO DAILY Qty: 30 0RF melatonin 3 mg Tablet 6 mg PO BEDTIME Qty: 120 0RF trazodone 100 mg Tablet 100 mg PO BEDTIME Qty: 30 0RF pantoprazole 40 mg Tablet,Delayed Release (Dr/Ec) 40 mg PO 0700 Qty: 30 0RF gabapentin [Neurontin] 300 mg Capsule 300 mg PO TID Qty: 90 0RF folic acid 1 mg Tablet 1 mg PO DAILY Qty: 30 0RF sertraline [Zoloft] 50 mg Tablet 50 mg PO BEDTIME Qty: 30 0RF multivitamin with folic acid [Tab-A-[place]] 400 mcg Tablet 1 tab PO DAILY Qty: 30 0RF glyburide 5 mg tablet 5 mg PO DAILY@0800 Qty: 30 0RF diazepam [Valium] 2 mg tablet 2 mg PO BID PRN (Reason: alcohol withdrawal) Qty: 14 0RF Continued atorvastatin 40 mg Tablet 40 mg PO BEDTIME 0RF sildenafil 25 mg Tablet 20 mg PO DAILY 0RF Rx Instructions: was only to be administered until the end of the month tamsulosin [Flomax] 0.4 mg Capsule 0.4 mg PO DAILY 0RF levothyroxine 150 mcg Tablet 150 mcg PO DAILY 0RF metoprolol succinate 25 mg Tablet Extended Release 24 Hr 25 mg PO DAILY 0RF metformin 500 mg Tablet Extended Release 24 Hr 500 mg PO DAILY 0RF zolpidem [Ambien CR] 12.5 mg Tablet,Ext Release Multiphase 12.5 mg PO BEDTIME PRN (Reason: Insomnia) 0RF Diet/Activity/Treatments Diet: Carb-consistent/Diabetic, Low-fat and Low-cholesterol Skin/Wound/Dressing Care Report to your healthcare provider any signs of infection, such as:: chills, fever, night sweats, increased pain and unusual drainage Visit Report/Discharge Packet Instructions: Eating a Diet Low in Saturated Fat, Trans Fat, and Cholesterol, Alcohol and Stress: There are Safer Ways to [place], Blood Pressure Testing and Measurement, Drug and Alcohol Withdrawal Quality VTE Deep Vein Thrombosis/Pulmonary Embolism Present on Admission: No
--- NOTE | 2021-02-03 14:08 | PC.NURSE ---
Discharge: Pt not feeling ready for d/c, did speak with MD and then later spoke with care management. He reports he had been told he would d/c to home tomorrow. He has help which would be his estranged . But then later said she might not be as much of a help since they are estranged. Pt is concerned one doctor is talking over another doctor. Do we know what to do? He feels rushed. Allowed pt to express feelings. Offered pt to speak with someone but he declined. Reviewed d/c packet. Rx's were faxed to [facility] with the exception of the gabapentin and diazepam. he will need to hand carry those in. Reviewed d/c packet. Pt removed own IV which was intact and removed tele. Questions answered. Pt d/c to home via taxi. He still feels he is leaving to early despite the doctor saying he is medically stable.
== END 2021-02-03 14:10 | disposition home or self-care (01) ==
LOC: ED 18:39 → AC 01-30 00:43
PROVIDERS: Hospitalist; Nurse Practitioner Family; Admitting Provider Internal Medicine; Emergency Provider Emergency Medicine; Referring Provider Emergency Medicine; Visit Provider Internal Medicine
DX: F10.129 Alcohol abuse with intoxication, unspecified (principal); Y90.5 Blood alcohol level of 100-119 mg/100 ml; R11.10 Vomiting, unspecified; E11.65 Type 2 diabetes mellitus with hyperglycemia; D70.9 Neutropenia, unspecified
CPT/HCPCS: 36415; 80048; 80053; 80074; 80076; 80320; 82962; 83036; 83735; 84439; 84443; 85007; 85025; 85610; 87070; 87205; 87635; 93005; 94762; 96361; 96365; 96372; 96375; 96376; 99285; C9803; G0378; J1100; J1650; J1815; J2060; J2405; J2560

== ENCOUNTER → 2021-03-16 14:22 | Outpatient (CLI) | payer OTHER, MEDICAID, SELFPAY ==
[2021-01-30 04:38] VITALS: BMI 29.2
--- NOTE | 2021-03-16 14:23 | DI.CT.S_ITS ---
PROCEDURE: CT ABDOMEN PELVIS WO/W CON INDICATIONS: HEMATURMA WORKUP TECHNIQUE: Optional 5 mm thick noncontrast images acquired from the diaphragm to the symphysis pubis. After the administration of intravenous contrast, 5 mm thick images acquired from the diaphragm to the symphysis pubis after a 10-minute delay. 2 mm thick coronal and sagittal reformats were then performed of the kidneys and ureters. For radiation dose reduction, the following was used: automated exposure control, adjustment of mA and/or kV according to patient size. COMPARISON: [facility], CT, KIDNEY/ URETER/BLADDER, 06/13/2017, 17:23. FINDINGS: Image quality: Excellent. Lung bases: Lung bases are clear. Heart size is normal. Asymmetric elevation of the right hemidiaphragm. Gynecomastia. Urinary system: Both kidneys are normal in size, without hydronephrosis or nephrolithiasis on pre-contrast images. No perinephric fat stranding. There is normal bilateral renal enhancement. A few cortical hypodensities which are too small to further characterize but likely benign cysts. Renal calyces appear normal in morphology when filled with contrast. Opacified portions of both ureters demonstrate normal caliber. No filling defect within the opacified portions of the ureters. Bladder wall thickness is normal. No calcified bladder stones. Other solid organs: Liver is normal in size. Hepatic steatosis. Gallbladder is unremarkable. Biliary system is non dilated. Pancreas enhances normally. Spleen is normal in size and enhancement. No adrenal nodules. Peritoneum and bowel: Bowel loops demonstrate normal wall thickness and caliber. Diverticulosis. Normal appendix. No free fluid or air. Nodes and vessels: No retroperitoneal or mesenteric adenopathy by size criteria. Aorta and inferior vena cava are normal in size. Abdominal wall: No ventral hernias. Pelvis: No pathologic free pelvic fluid. Probable fat containing inguinal hernias. No adenopathy. Bones: Mild sclerosis at the sternum. No vertebral body compression fractures. IMPRESSION: 1. No solid renal mass. No filling defect within the opacified portions of the ureters. 2. No kidney stones. No hydronephrosis. 3. Hepatic steatosis. Diverticulosis. 4. Mild sclerosis at the sternum. This could be the sequelae of prior trauma. Dictated by: Masoud Guillaume M.D. on 03/16/2021 at 15:17 Approved by: Masoud Guillaume M.D. on 03/16/2021 at 15:31
== END ==
PROVIDERS: Referring Provider Urology; Visit Provider Urology
DX: R31.29 Other microscopic hematuria (principal); K76.0 Fatty (change of) liver, not elsewhere classified; K57.90 Diverticulosis of intestine, part unspecified, without perforation or abscess without bleeding
CPT/HCPCS: 74178; Q9967

== ENCOUNTER → 2021-10-02 12:20 | Outpatient (CLI) | payer OTHER, MEDICAID, SELFPAY ==
[2021-01-30 04:38] VITALS: BMI 29.2
[2021-10-02 13:36] LABS: Influenza A - CEPHEID Flu A NEGATIVE (NEGATIVE); Influenza B - CEPHEID Flu B NEGATIVE (NEGATIVE)
[2021-10-02 13:37] LABS: COVID-19 CEPHEID PCR (VTM/NP) Negative (Negative)
== END ==
PROVIDERS: Visit Provider Nurse Practitioner Critical Care Medicine
DX: J06.9 Acute upper respiratory infection, unspecified (principal); Z20.822 Contact with and (suspected) exposure to COVID-19
CPT/HCPCS: 0240U